=== PATIENT | male | born 1990 | race Two or more races ===

== ENCOUNTER → 2016-04-29 | Outpatient (CLI) | payer MEDICARE, MEDICAID | LOC: M LAB 16:48 | PROVIDERS: ATTEND Surgery | DX: N39.0 Urinary tract infection, site not specified (principal) ==

== ENCOUNTER → 2016-05-16 | Outpatient (REF) | payer MEDICARE, MEDICAID ==
[2016-05-16 15:39] LABS: BASO # 0.1 K/mm3 (0.0-0.2); EOS # 0.1 K/mm3 (0.0-0.50); LARGE UNSTAINED CELL # 0.2 K/mm3 (0.0-0.4); LARGE UNSTAINED CELL % 1.8 % (0.0-4.0); LYMPH # 3.3 K/mm3 (1.5-6.5); LYMPH % 33.4 % (24.0-44.0); MEAN CORPUSCULAR HGB CONC 32.6 g/dl (32.0-36.5); MEAN CORPUSCULAR VOLUME 85.7 fl (80.0-96.0); MONO # 0.6 K/mm3 (0.0-0.8); MONO % 5.9 % (0.0-5.0); NEUTROPHILS # 5.3 K/mm3 (1.8-7.7); NEUTROPHILS % 56.8 % (36.0-66.0); PLATELET COUNT, AUTOMATED 326 k/mm3 (150-450); RED CELL DISTRIBUTION WIDTH 12.8 % (11.5-14.5); WHITE BLOOD COUNT 9.3 K/mm3 (4.0-10.0)
[2016-05-16 16:35] LABS: ALBUMIN 4.3 GM/DL (3.2-5.2); ALBUMIN/GLOBULIN RATIO 1.23 (1.00-1.93); ALKALINE PHOSPHATASE 75 U/L (45-117); ALT/SGPT 52 U/L (12-78); ANION GAP 12 MEQ/L (8-16); AST/SGOT 24 U/L (15-37); BILIRUBIN,TOTAL 0.5 MG/DL (0.2-1.0); BLOOD UREA NITROGEN 11 MG/DL (7-18); CALCIUM LEVEL 9.1 MG/DL (8.5-10.1); CARBON DIOXIDE LEVEL 27 MEQ/L (21-32); CHLORIDE LEVEL 105 MEQ/L (98-107); CHOLESTEROL LEVEL 183 MG/DL (<200); CREATININE FOR GFR 0.43 MG/DL (0.70-1.30); GLOMERULAR FILTRATION RATE > 60.0 (>60); GLUCOSE, FASTING 85 MG/DL (70-105); SODIUM LEVEL 144 MEQ/L (136-145); TOTAL PROTEIN 7.8 GM/DL (6.4-8.2); TRIGLYCERIDES LEVEL 163 MG/DL (<150)
== END ==
LOC: M SFHCPLAZ 12:50
PROVIDERS: ATTEND Physician Assistant
DX: G04.89 Other myelitis (principal); I10 Essential (primary) hypertension; E78.5 Hyperlipidemia, unspecified; E55.9 Vitamin D deficiency, unspecified

== ENCOUNTER → 2016-05-21 | Outpatient (CLI) | payer MEDICARE, MEDICAID ==
--- NOTE | 2016-05-21 15:51 | REP ---
ULTRASOUND RIGHT HIP: Ultrasound right hip region performed for a reported palpable abnormality. There is a clinical question of myositis ossificans. There is generalized increased echogenicity of the soft tissues in the region of the palpable abnormality at the lateral aspect of the right hip. No discrete cystic or solid mass is seen. No fluid collection is seen. Further evaluation for myositis ossificans could be made with plain radiographs of this region.
== END ==
LOC: M WHC 14:10
PROVIDERS: ATTEND Physician Assistant
DX: R22.41 Localized swelling, mass and lump, right lower limb (principal)

== ENCOUNTER → 2016-06-04 | Outpatient (CLI) | payer MEDICARE, MEDICAID | LOC: M LAB 17:03 | PROVIDERS: ATTEND Surgery | DX: N39.0 Urinary tract infection, site not specified (principal) ==

== ENCOUNTER → 2016-11-22 | Outpatient (CLI) | payer MEDICARE, MEDICAID | LOC: M LAB 11:53 | PROVIDERS: ATTEND Surgery | DX: R30.0 Dysuria (principal) ==

== ENCOUNTER → 2017-03-19 | Outpatient (REF) | payer MEDICARE, MEDICAID | LOC: M SFHCPLAZ 15:26 | PROVIDERS: ATTEND Physician Assistant | DX: E55.9 Vitamin D deficiency, unspecified (principal) ==

== ENCOUNTER → 2017-03-25 | Outpatient (REF) | payer MEDICARE, MEDICAID | LOC: M SFHCPLAZ 14:15 | PROVIDERS: ATTEND Family Medicine | DX: Z68.35 Body mass index [BMI] 35.0-35.9, adult (principal); E66.9 Obesity, unspecified; Z79.899 Other long term (current) drug therapy ==

== ENCOUNTER 2017-06-30 11:52 | Day surgery (SDC) | payer MEDICARE, MEDICAID ==
[2017-06-30] MEDS: LR 1,000 ML IV (12:35)
[2017-06-30] MEDS ORDERED: MIDAZOLAM INJ 2 MG/2 ML VIAL (J2250) As Ordered (12:39)
[2017-06-30] MEDS ORDERED: PROPOFOL 200 MG/20 ML VIAL As Ordered ×2 (12:39→13:31)
[2017-06-30] MEDS ORDERED: fentaNYL 100 MCG/2 ML INJECTION (J3010) As Ordered (12:39)
[2017-06-30] MEDS ORDERED: LIDOCAINE 2% INJ 100 MG/5 ML SDV (FOR ANES.) As Ordered (12:39)
[2017-06-30] MEDS: LIDOCAINE 1% SDV INJ 30 ML VIAL As Ordered (13:54)
[2017-06-30] MEDS ORDERED: PERCOCET 5MG/325MG TAB As Ordered (14:40)
[2017-06-30] MEDS: PERCOCET 5MG/325MG TAB PO ×2 (14:48→15:20)
[2017-06-30] MEDS: ONDANSETRON 4MG/2ML VIAL (J2405) IV (14:51)
[2017-06-30] MEDS ORDERED: METOCLOPRAMIDE INJ 10MG/2ML VIAL (J2765) IV (15:00)
[2017-06-30] MEDS ORDERED: fentaNYL 100 MCG/2 ML INJECTION (J3010) IV (15:00)
[2017-06-30] MEDS ORDERED: LR 1,000 ML IV (15:00)
== END 2017-06-30 15:55 | disposition home or self-care (01) ==
LOC: M SDC 11:52
DX: G56.01 Carpal tunnel syndrome, right upper limb (principal); G82.20 Paraplegia, unspecified; Z99.3 Dependence on wheelchair; I10 Essential (primary) hypertension; Z79.899 Other long term (current) drug therapy; Z87.891 Personal history of nicotine dependence
CPT/HCPCS: 64721

== ENCOUNTER → 2018-01-29 | Outpatient (REF) | payer MEDICARE, MEDICAID | LOC: M LAB REF 19:12 | DX: N39.0 Urinary tract infection, site not specified (principal) ==

== ENCOUNTER → 2018-01-29 | Outpatient (CLI) | payer MEDICARE, MEDICAID ==
[2018-01-29 18:53] LABS: BASO # 0.1 10^3/uL (0.0-0.2); BASO % 0.5 % (0.0-1.0); HEMATOCRIT 42.3 % (42.0-52.0); IMMATURE GRANULOCYTE % 0.8 % (0-3.0); LYMPH # 2.4 10^3/uL (1.5-6.5); LYMPH % 11.3 % (24.0-44.0); MEAN CORPUSCULAR HEMOGLOBIN 28.6 pg (27.0-33.0); MEAN CORPUSCULAR HGB CONC 33.1 g/dl (32.0-36.5); MEAN CORPUSCULAR VOLUME 86.3 fl (80.0-96.0); MONO % 9.6 % (0.0-5.0); NEUTROPHILS # 16.7 10^3/uL (1.8-7.7); NEUTROPHILS % 77.8 % (36.0-66.0); PLATELET COUNT, AUTOMATED 268 10^3/uL (150-450); RED CELL DISTRIBUTION WIDTH 13.1 % (11.5-14.5); WHITE BLOOD COUNT 21.5 10^3/uL (4.0-10.0)
[2018-01-29 18:55] LABS: MONO # 2.1 10^3/uL (0.0-0.8); POSITIVE DIFF POS FLAG
[2018-01-29 19:04] LABS: ALBUMIN/GLOBULIN RATIO 1.14 (1.00-1.93); ALKALINE PHOSPHATASE 63 U/L (45-117); ALT/SGPT 49 U/L (12-78); ANION GAP 12 MEQ/L (8-16); AST/SGOT 33 U/L (7-37); BILIRUBIN,TOTAL 1.4 MG/DL (0.2-1.0); BLOOD UREA NITROGEN 8 MG/DL (7-18); CARBON DIOXIDE LEVEL 26 MEQ/L (21-32); CHLORIDE LEVEL 99 MEQ/L (98-107); CREATININE FOR GFR 0.59 MG/DL (0.70-1.30); GLOMERULAR FILTRATION RATE > 60.0 (>60); GLUCOSE, FASTING 84 MG/DL (70-100); POTASSIUM SERUM 3.3 MEQ/L (3.5-5.1); SODIUM LEVEL 137 MEQ/L (136-145); TOTAL PROTEIN 7.5 GM/DL (6.4-8.2)
== END ==
LOC: M WUC 16:09
DX: N39.0 Urinary tract infection, site not specified (principal)
CPT/HCPCS: 80053

== ENCOUNTER 2018-01-30 13:26 | Emergency (ER) | payer MEDICARE, MEDICAID ==
[2018-01-30] MEDS: NS 1,000 ML IV (15:18)
[2018-01-30 15:27] LABS: BASO # 0.1 10^3/uL (0.0-0.2); BASO % 0.3 % (0.0-1.0); EOS % 0.1 % (0.0-3.0); HEMATOCRIT 43.5 % (42.0-52.0); HEMOGLOBIN 14.6 g/dl (13.5-17.5); IMMATURE GRANULOCYTE % 0.5 % (0-3.0); LYMPH # 2.2 10^3/uL (1.5-6.5); MEAN CORPUSCULAR HEMOGLOBIN 28.6 pg (27.0-33.0); MEAN CORPUSCULAR HGB CONC 33.6 g/dl (32.0-36.5); MEAN CORPUSCULAR VOLUME 85.1 fl (80.0-96.0); MONO % 11.4 % (0.0-5.0); NEUTROPHILS % 75.7 % (36.0-66.0); PLATELET COUNT, AUTOMATED 267 10^3/uL (150-450); RED BLOOD COUNT 5.11 10^6/uL (4.30-6.10); WHITE BLOOD COUNT 18.5 10^3/uL (4.0-10.0)
[2018-01-30 15:54] LABS: APPEARANCE, URINE HAZY (CLEAR); BACTERIA, URINE AUTO 1+ (NEGATIVE); BILIRUBIN, URINE AUTO NEGATIVE (NEGATIVE); BLOOD, URINE BLOOD 2+ (NEGATIVE); COLOR, URINE YELLOW (YELLOW); GLUCOSE, URINE (UA) AUTO NEGATIVE (NEGATIVE); KETONE, URINE AUTO 1+ mg/dL (NEGATIVE); LEUKOCYTE ESTERASE, URINE AUTO TRACE (NEGATIVE); MUCUS, URINE MODERATE (NEGATIVE); NITRITE, URINE AUTO NEGATIVE (NEGATIVE); PROTEIN, URINE AUTO 2+ mg/dL (NEGATIVE); RBC, URINE AUTO 8 /HPF (0-3); SPECIFIC GRAVITY URINE AUTO 1.024 (1.002-1.035); SQUAMOUS EPITHELIAL CELL UR AU 0 /HPF (0-6); UROBILINOGEN, URINE AUTO 0.2 mg/dL (0.0-2.0); WBC, URINE AUTO 2 /HPF (0-3)
[2018-01-30 15:55] LABS: LACTIC ACID SEPSIS PROTOCOL 1.2 MMOL/L (0.4-2.0)
[2018-01-30 15:58] LABS: MONO # 2.1 10^3/uL (0.0-0.8)
[2018-01-30 15:59] LABS: POSITIVE DIFF POS FLAG
[2018-01-30] MEDS: cefTRIAXone SOD 1 GM in D5W MINI-BAG PLUS 50 ML IV (16:09)
[2018-01-30 16:17] LABS: ALBUMIN 4.3 GM/DL (3.2-5.2); ALKALINE PHOSPHATASE 65 U/L (45-117); ALT/SGPT 62 U/L (12-78); ANION GAP 11 MEQ/L (8-16); AST/SGOT 82 U/L (7-37); BILIRUBIN,DIRECT 0.3 MG/DL (0.0-0.2); BILIRUBIN,TOTAL 0.9 MG/DL (0.2-1.0); BLOOD UREA NITROGEN 8 MG/DL (7-18); CALCIUM LEVEL 9.8 MG/DL (8.5-10.1); CARBON DIOXIDE LEVEL 28 MEQ/L (21-32); CHLORIDE LEVEL 100 MEQ/L (98-107); CREATININE FOR GFR 0.52 MG/DL (0.70-1.30); GLOMERULAR FILTRATION RATE > 60.0 (>60); GLUCOSE, FASTING 100 MG/DL (70-100); POTASSIUM SERUM 3.3 MEQ/L (3.5-5.1); SODIUM LEVEL 139 MEQ/L (136-145); TOTAL PROTEIN 8.2 GM/DL (6.4-8.2)
== END 2018-01-30 17:06 | disposition home or self-care (01) ==
LOC: M ED 13:26
DX: L03.116 Cellulitis of left lower limb (principal); N39.0 Urinary tract infection, site not specified; I10 Essential (primary) hypertension; G82.20 Paraplegia, unspecified; G37.3 Acute transverse myelitis in demyelinating disease of central nervous system; Z87.440 Personal history of urinary (tract) infections; Z79.899 Other long term (current) drug therapy
CPT/HCPCS: J0696

== ENCOUNTER → 2018-03-24 | Outpatient (REF) | payer MEDICARE, MEDICAID ==
[~2018-03-24] MED LIST: AMLO5TAB4 PO; CRAN250C2 PO; KEFL500C17 PO; LISI10TA4 PO; VITA100067 PO; VITA100072 PO; VITA500T PO; ZOFR4TAB14 PO; [UNRECOGNIZED DRUG - CODE] PO
== END ==
LOC: M LAB REF 09:36
PROVIDERS: ATTEND Physician Assistant
DX: R30.0 Dysuria (principal)

== ENCOUNTER → 2018-08-03 | Outpatient (REF) | payer MEDICARE, MEDICAID, OTHER ==
[~2018-08-03] MED LIST changes: -AMLO5TAB4 PO; +AMLO5TAB6 PO; +VITA100018 PO; -VITA100072 PO
[2018-08-03 20:18] LABS: BACTERIA, URINE AUTO NEGATIVE (NEGATIVE); MUCUS, URINE SMALL (NEGATIVE); RBC, URINE AUTO 0 /HPF (0-3); SQUAMOUS EPITHELIAL CELL UR AU 0 /HPF (0-6); WBC, URINE AUTO 1 /HPF (0-3)
== END ==
LOC: M LAB REF 18:01
PROVIDERS: ATTEND Physical Medicine & Rehabilitation
DX: N39.0 Urinary tract infection, site not specified (principal)

== ENCOUNTER → 2018-10-18 | Outpatient (REF) | payer OTHER, MEDICARE ==
[~2018-10-18] MED LIST changes: +CIPR-249 PO; +CLOM50TA9 PO; +CRAN400C PO; +DOXY-350 PO; +DULO1CAP4 PO; +IBUP-1114 PO; +LETR2.5T2 PO; +TYLE650T38 PO; +[UNRECOGNIZED DRUG - CODE] PO
== END ==
LOC: M LAB REF 09:26
PROVIDERS: ATTEND Physician Assistant
DX: N39.0 Urinary tract infection, site not specified (principal)

== ENCOUNTER → 2018-11-26 | Outpatient (REF) | payer OTHER ==
[~2018-11-26] MED LIST changes: -CIPR-249 PO; -CLOM50TA9 PO; -CRAN400C PO; -DOXY-350 PO; -DULO1CAP4 PO; -IBUP-1114 PO; -LETR2.5T2 PO; -TYLE650T38 PO; -[UNRECOGNIZED DRUG - CODE] PO
== END ==
LOC: M LAB REF 14:49
PROVIDERS: ATTEND Physician Assistant
DX: R30.0 Dysuria (principal)

== ENCOUNTER → 2018-12-22 | Outpatient (CLI) | payer OTHER, MEDICARE, MEDICAID ==
[~2018-12-22] MED LIST changes: +CIPR-249 PO; +CLOM50TA9 PO; +CRAN400C PO; +DOXY-350 PO; +DULO1CAP4 PO; +IBUP-1114 PO; +LETR2.5T2 PO; +TYLE650T38 PO; +[UNRECOGNIZED DRUG - CODE] PO
[2018-12-22 17:47] LABS: PROSTATIC SPECIFIC AG MONITOR 0.55 NG/ML (< 4.00)
[2018-12-22 18:47] LABS: ESTRADIOL < 19.0 PG/ML (<39.8); TESTOSTERONE 536 NG/DL (241-827)
== END ==
LOC: M WUC 15:33
PROVIDERS: ATTEND Urology
DX: N46.9 Male infertility, unspecified (principal)

== ENCOUNTER 2019-01-04 16:03 | Inpatient (IN) | payer OTHER, MEDICARE, MEDICAID ==
[~2019-01-04] VITALS: Ht 182.9 cm; Wt 107.1 kg
[~2019-01-04 16:03] MED LIST changes: -CIPR-249 PO; -CLOM50TA9 PO; -CRAN400C PO; -DOXY-350 PO; -DULO1CAP4 PO; -IBUP-1114 PO; -LETR2.5T2 PO; -TYLE650T38 PO; -[UNRECOGNIZED DRUG - CODE] PO
[2019-01-04] MEDS ORDERED: LETR2.5T2 PO (16:13)
[2019-01-04] MEDS ORDERED: DULO1CAP4 PO (16:13)
[2019-01-04] MEDS ORDERED: CIPR-249 PO (16:13)
[2019-01-04] MEDS ORDERED: IBUP-1114 PO (16:14)
[2019-01-04] MEDS ORDERED: ONDANSETRON 4MG/2ML VIAL (J2405) IV ONE (16:30)
[2019-01-04] MEDS ORDERED: ACETAMINOPHEN *IV* 1,000 MG in IV 1 EA IV ONE (16:30)
[2019-01-04] MEDS ORDERED: NS 1,000 ML IV ONE ×2 (16:30)
--- NOTE | 2019-01-04 17:01 | REP ---
Portable AP and lateral chest : There are no comparisons. There is an incomplete inspiratory effort. There is increased density in the lung bases bilaterally. This is nonspecific and could represent under aeration of the lung cannon or could represent bilateral infiltrates. No pleural effusions. Cardiac size is normal. Electronically Signed by Juan Carlos Lopez MD 01/04/2019 04:52 P
[2019-01-04 17:02] LABS: BASO % 0.3 % (0.0-1.0); HEMATOCRIT 38.8 % (42.0-52.0); LYMPH # 1.1 10^3/uL (1.5-5.0); LYMPH % 7.4 % (24.0-44.0); MEAN CORPUSCULAR HEMOGLOBIN 28.1 pg (27.0-33.0); MEAN CORPUSCULAR HGB CONC 33.5 g/dl (32.0-36.5); MONO # 0.4 10^3/uL (0.0-0.8); MONO % 2.8 % (0.0-5.0); NEUTROPHILS # 12.8 10^3/uL (1.5-8.5); NEUTROPHILS % 88.9 % (36.0-66.0); PLATELET COUNT, AUTOMATED 398 10^3/uL (150-450); RED BLOOD COUNT 4.62 10^6/uL (4.30-6.10); WHITE BLOOD COUNT 14.4 10^3/uL (4.0-10.0)
[2019-01-04 17:30] LABS: ALBUMIN 3.5 GM/DL (3.2-5.2); ALT/SGPT 53 U/L (12-78); BILIRUBIN,TOTAL 1.1 MG/DL (0.2-1.0); BLOOD UREA NITROGEN 8 MG/DL (7-18); CALCIUM LEVEL 9.3 MG/DL (8.5-10.1); CARBON DIOXIDE LEVEL 27 MEQ/L (21-32); CHLORIDE LEVEL 101 MEQ/L (98-107); CREATININE FOR GFR 0.61 MG/DL (0.70-1.30); GLOMERULAR FILTRATION RATE > 60.0 (>60); GLUCOSE, FASTING 112 MG/DL (70-100); SODIUM LEVEL 137 MEQ/L (136-145); TOTAL PROTEIN 7.5 GM/DL (6.4-8.2)
--- NOTE | 2019-01-04 18:07 | REP ---
Supine abdomen single AP view: Comparison is 07/19/2013. There is moderate small and large bowel distension in a nonspecific pattern. There are no calcifications. Skeletal structures and soft tissues are unremarkable. Impression: Nonspecific bowel gas pattern. Electronically Signed by Juan Carlos Lopez MD 01/04/2019 05:58 P
[2019-01-04 18:10] LABS: INFLUENZA A AMPLIFICATION NEGATIVE (NEGATIVE); INFLUENZA B AMPLIFICATION NEGATIVE (NEGATIVE)
[2019-01-04] MEDS ORDERED: KETOROLAC 30 MG/ML VIAL (J1885) IV ONE (18:30)
[2019-01-04] MEDS: NS 1,000 ML IV SCH (19:30)
[2019-01-04] MEDS ORDERED: CLOM50TA9 PO (19:48)
[2019-01-04] MEDS ORDERED: [UNRECOGNIZED DRUG - CODE] PO (19:48)
[2019-01-04] MEDS ORDERED: CRAN400C PO (19:48)
[2019-01-04] MEDS ORDERED: PIPERACILLIN/TAZOBACTAM SOD 3.375 GM in D5W MINI-BAG PLUS 50 ML IV ONE (20:15)
--- NOTE | 2019-01-04 20:16 | HPEPDOC ---
[facility] Medical History & Physical Date of Admission Jan 04, 2019 Date of Service: Jan 04, 2019 Primary Care Physician: KATY CRAMER MD Attending Physician: SHAHAB GARCIA MD History and Physical TIME OF SERVICE: 7:45 PM CHIEF COMPLAINT: Fever HISTORY OF PRESENT ILLNESS: This is a 28-year-old male with a past medical history of paraplegia and urinary retention requiring intermittent self catheterization. Unfortunately, his experience replete UTIs. Since Thursday he's been experiencing fevers, nausea, nonbloody emesis, abdominal pain, decreased appetite and mild headaches. He denies having chills, denies having new back pain, and denies having constipation or diarrhea. On Thursday, went to urgent care center and was started on ciprofloxacin but he came in today because he continues to have fevers, chills, and vomiting. Per discussion with the ED provider his initial temperature was 103.1 and improved to 101.3 after receiving Tylenol. His WBC count & HR were elevated, and the UA was only positive for WBCs & RBCs. The respiratory panel, chest x-ray, and KUB were unremarkable. 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 Tunnel syndrome affecting the right wrist His post placement of an artificial urethral sphincter SOCIAL HISTORY: Quit smoking FAMILY HISTORY: Diabetes Hypertension Dyslipidemia. Hypothyroidism. AAA Congestive heart failure Coronary artery disease ALLERGIES: Please see below. HOME MEDICATIONS: Please see below. PHYSICAL EXAMINATION: VITAL SIGNS: Please see below. GENERAL APPEARANCE: Well-nourished, well-developed, does not appear in apparent distress HEENT: No cephalic, atraumatic, mucous membranes slightly dry CARDIOVASCULAR: Regular rate and rhythm. No murmurs, rubs or gallops. Radial pulses intact. External these are warm and well-perfused LUNGS: Clear to auscultation bilaterally on room air ABDOMEN: Bowel sounds are hypoactive. Abdomen is soft. No grimacing with palpation MUSCULOSKELETAL: Range of motion intact in upper extremities INTEGUMENT: Slightly diaphoretic NEUROLOGICAL: Cranial nerves II-12 are grossly intact. Speech is not dysarthric PSYCHIATRIC: Alert and oriented to person, place and time, able to understand and follow commands LABORATORY DATA: See below. IMAGING: Chest x-ray " There is increased density in the lung bases bilaterally. This is nonspecific and could represent under aeration of the lung cannon or could represent bilateral infiltrates." KUB shows nonspecific gas pattern MICROBIOLOGY: Please see below. ASSESSMENT: Mr. Saenz is a 28-year-old male with a past medical history of transverse myelitis, chronic hypertension, carpal tunnel syndrome, who will be admitted for evaluation of SIRS whose sources is to be determined. PLAN: 1. SIRS Source may be a partially treated UTI ? vs Bacteremia ? He doesn't have a severe headache or neck stiffness; therefore meningitis is low on the differential. His only complaints are of n/v and abd pain Criteria include fever, tachycardia, tachypnea, and elevated WBC count Lactic acid is within normal limits He has non diabetic hyperglycemia Chest x-ray, KUB, UA, and flu panel are noncontributory NEW2S Score = 6 points = medium risk = requires frequent monitoring Plan: admit to PCU / telemetry / Sepsis protocol / switch to Zosyn / c/w IVF /f/u blood cx 2. Hypokalemia secondary to emesis Plan: Replete potassium and follow-up magnesium / Zofran when necessary for emesis 3. 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 Chronic hypertension. Plan: Continue home meds 5. Obesity BMI 34.7 Plan: can f/u w PCP for STOP BANG questionnaire railroad conductor consult / f/u A1C [place] Prediction Score to determine need for AC in hospitalized pts = 4 points = pharmacological px is indicated = lovenox Disposition pending clinical course Vital Signs Vital Signs Date Time Temp Pulse Resp B/P (MAP) Pulse Ox O2 Delivery O2 Flow Rate FiO2 01/04/19 18:30 101.6 99 22 143/65 (91) 92 Room Air Laboratory Data Labs 24H Laboratory Tests 2 01/04/19 16:33: Immature Granulocyte % (Auto) 0.6, White Blood Count 14.4H, Red Blood Count 4.62, Hemoglobin 13.0L, Hematocrit 38.8L, Mean Corpuscular Volume 84.0, Mean Corpuscular Hemoglobin 28.1, Mean Corpuscular Hemoglobin Concent 33.5, Red Cell Distribution Width 13.0, Platelet Count 398, Neutrophils (%) (Auto) 88.9H, Lymphocytes (%) (Auto) 7.4L, Monocytes (%) (Auto) 2.8, Eosinophils (%) (Auto) 0.0, Basophils (%) (Auto) 0.3, Neutrophils # (Auto) 12.8H, Lymphocytes # (Auto) 1.1L, Monocytes # (Auto) 0.4, Eosinophils # (Auto) 0.0, Basophils # (Auto) 0.0, Nucleated Red Blood Cells % (auto) 0.0, Anion Gap 9, Glomerular Filtration Rate > 60.0, Lactic Acid Level 1.4, Blood Urea Nitrogen 8, Creatinine 0.61L, Sodium Level 137, Potassium Level 3.0L, Chloride Level 101, Carbon Dioxide Level 27, Calcium Level 9.3, Aspartate Amino Transf (AST/SGOT) 29, Alanine Aminotransferase (ALT/SGPT) 53, Alkaline Phosphatase 69, Total Bilirubin 1.1H, Total Protein 7.5, Albumin 3.5, Albumin/Globulin Ratio 0.88L, Influenza Type A (RT-PCR) NEGATIVE, Influenza Type B (RT-PCR) NEGATIVE 01/04/19 18:18: Urine Color POLI, Urine Appearance HAZY, Urine pH 6.0, Urine Specific [place] 1.027, Urine Protein 2+H, Urine Glucose (UA) NEGATIVE, Urine Ketones 2+H, Urine Blood NEGATIVE, Urine Nitrite NEGATIVE, Urine Bilirubin NEGATIVE, Urine Urobilinogen 4.0H, Urine Leukocyte Esterase NEGATIVE, Urine WBC (Auto) 6H, Urine RBC (Auto) 4H, Urine Hyaline Casts (Auto) 0, Urine Bacteria (Auto) NEGATIVE, Urine Squamous Epithelial Cells 0, Urine Mucus (Auto) LARGE, Urine Sperm (Auto) CBC/BMP Laboratory Tests 01/04/19 16:33 Red Blood Count 4.62, Mean Corpuscular Volume 84.0, Mean Corpuscular Hemoglobin 28.1, Mean Corpuscular Hemoglobin Concent 33.5, Red Cell Distribution Width 13.0, Neutrophils (%) (Auto) 88.9 H, Lymphocytes (%) (Auto) 7.4 L, Monocytes (%) (Auto) 2.8, Eosinophils (%) (Auto) 0.0, Basophils (%) (Auto) 0.3, Neutrophils # (Auto) 12.8 H, Lymphocytes # (Auto) 1.1 L, Monocytes # (Auto) 0.4, Eosinophils # (Auto) 0.0, Basophils # (Auto) 0.0, Calcium Level 9.3, Aspartate Amino Transf (AST/SGOT) 29, Alanine Aminotransferase (ALT/SGPT) 53, Alkaline Phosphatase 69, Total Bilirubin 1.1 H, Total Protein 7.5, Albumin 3.5 Microbiology Microbiology 01/04/19 Blood Culture, Received Pending 01/04/19 Blood Culture, Received Pending Home Medications Scheduled Amlodipine Besylate (Amlodipine Besylate) 5 Mg Tab, 5 MG PO DAILY Ascorbic Acid (Vitamin C) 500 Mg Tab, 500 MG PO BID TAKES WITH METHENAMINE C/E/FA/Zinc/Selenium/Lycopene (Conceptionxr Reproductive Tab) 1 Each Tablet, 1 TAB PO BID Ciprofloxacin HCl (Cipro) 500 Mg Tablet, 500 MG PO BID FOR 4 DAYS, FILLED 01/02 Clomiphene Citrate (Clomiphene Citrate) 50 Mg Tablet, 50 MG PO DAILY Cranberry (Cranberry) 400 Mg Capsule, 400 MG PO DAILY Cyanocobalamin (Vitamin B-12) (Vitamin B-12) 1,000 Mcg Tab, 1,000 MCG PO DAILY Duloxetine Hcl (Duloxetine HCl) 20 Mg Capsule.dr, 20 MG PO BID Letrozole (Letrozole) 2.5 Mg Tablet, 2.5 MG PO DAILY Lisinopril (Lisinopril) 10 Mg Tab, 10 MG PO DAILY Methenamine Hippurate (Hiprex) 1 Gm Tab, 1 GM PO BID TAKES WITH VIT C Scheduled PRN Ibuprofen (Ibuprofen) 400 Mg Tablet, 400 MG PO Q6H PRN for PAIN / FEVER Allergies Coded Allergies: No Known Allergies (Unverified , 06/30/17) A-FIB/CHADSVASC A-FIB History Current/History of A-Fib/PAF?: No Current PO Anticoag Therapy: No SHAHAB GARCIA MD Jan 04, 2019 20:16
[2019-01-04 20:55] VITALS: BP 136/78
[2019-01-04] MEDS ORDERED: KCL 10MEQ/100ML SWI (KRUN) 10 MEQ in IV 1 EA IV ONE (21:00)
[2019-01-04] MEDS: POTASSIUM CHL PWD 20 MEQ PACKET PO SCH (21:45)
[2019-01-04] MEDS: SIMETHICONE 80 MG CHEW TAB PO PRN (22:37)
[2019-01-04] MEDS: PIPERACILLIN/TAZOBACTAM SOD 3.375 GM in D5W MINI-BAG PLUS 50 ML IV SCH (22:58)
[2019-01-04 23:59] VITALS: BP 105/55
[2019-01-05] VITALS (7 sets, daily range): BP systolic 125–180; BP diastolic 57–82
[2019-01-05] MEDS: POTASSIUM CHL PWD 20 MEQ PACKET PO SCH ×2 (00:55→05:51)
[2019-01-05] MEDS: NS 1,000 ML IV SCH ×2 (04:15→20:35)
[2019-01-05] MEDS: PIPERACILLIN/TAZOBACTAM SOD 3.375 GM in D5W MINI-BAG PLUS 50 ML IV SCH ×4 (04:16→21:59)
[2019-01-05 05:21] LABS: HEMATOCRIT 34.5 % (42.0-52.0); HEMOGLOBIN 11.3 g/dl (13.5-17.5); MEAN CORPUSCULAR HEMOGLOBIN 28.3 pg (27.0-33.0); MEAN CORPUSCULAR HGB CONC 32.8 g/dl (32.0-36.5); MEAN CORPUSCULAR VOLUME 86.5 fl (80.0-96.0); PLATELET COUNT, AUTOMATED 313 10^3/uL (150-450); RED BLOOD COUNT 3.99 10^6/uL (4.30-6.10); WHITE BLOOD COUNT 11.3 10^3/uL (4.0-10.0)
[2019-01-05 05:42] LABS: BLOOD UREA NITROGEN 9 MG/DL (7-18); CALCIUM LEVEL 8.2 MG/DL (8.5-10.1); CARBON DIOXIDE LEVEL 31 MEQ/L (21-32); CHLORIDE LEVEL 105 MEQ/L (98-107); CREATININE FOR GFR 0.54 MG/DL (0.70-1.30); GLOMERULAR FILTRATION RATE > 60.0 (>60); GLUCOSE, FASTING 109 MG/DL (70-100); POTASSIUM SERUM 3.1 MEQ/L (3.5-5.1); SODIUM LEVEL 141 MEQ/L (136-145)
[2019-01-05 05:47] LABS: HEMOGLOBIN A1c 4.9 %
[2019-01-05] MEDS: SIMETHICONE 80 MG CHEW TAB PO PRN (05:55)
[2019-01-05] MEDS ORDERED: PIPERACILLIN/TAZOBACTAM SOD 2.25 GM in D5W MINI-BAG PLUS 50 ML IV SCH (09:00)
[2019-01-05] MEDS ORDERED: POTASSIUM CHLORIDE 10 MEQ SR TABLET PO ONE (09:00)
[2019-01-05] MEDS: ENOXAPARIN 40 MG/0.4 ML SYRINGE (J1650) SC SCH (09:27)
[2019-01-05] MEDS: IBUPROFEN 600 MG TAB PO PRN ×2 (11:58)
[2019-01-05] MEDS: amLODIPine 5 MG TAB PO SCH (13:05)
[2019-01-05] MEDS: LISINOPRIL 10 MG TAB PO SCH (13:06)
[2019-01-05] MEDS: CYANOCOBALAMIN 500 MCG TAB PO SCH (13:09)
--- NOTE | 2019-01-05 14:43 | IPNPDOC ---
Text Note Date of Service The patient was seen on 01/05/19. NOTE Subjective: Patient is a 28 year old male with a PMHx of HTN, Paraplegia 2/2 Transverse Myelitis, Neurogenic bladder (Requiring self-catheterizations, s/p Placement of artificial urethral sphincter) who has presented to the ER with complaints of N/V, fevers and abdominal pain. On 01/01 he had visited Urgent care and was presecribed Ciprofloxacin for a suspected UTI. Patient was admitted to the hospitalist service for further evaluation / treatment. Patient was seen and examined at the bedside. Currently patient has no complaints of N/V, abdominal pain, CP, SOB or palitations. Patient has a history of paraplegia and is unfortunately unable to determine if he there is any dysuria. He has noted that his urine has been much darker than usual. At baseline patient uses a device to help with bowel movements. Currently he denies any incontinence of stools. Objective: Vitals (See below) General: Lying in bed, no acute distress, comfortable, AAOx3 HEENT: NC, AT CVS: RRR, +S1S2 Lungs: Fair air entry b/l, -w/r/r Abdomen: Soft, ND, NT Extremities: - Edema, - Calf tenderness Assessment and plan: Fever / Chills - etiology unclear; possibly 2/2 pneumonia? (Coverage for gram negative pneumonia) - Patient has had a history of recurrent UTIs; has visited urgent care and was prescribed Ciprofloxacin; despite this continued to experience fevers - ROS remains negative at this time - Currently he is hemodynamically stable; mild fevers still noted - Leukocytosis improving; No lactic acidosis - Urinalysis does not appear to have evidence of infection - Blood cultures 01/04: Pending; Respiratory panel 10/: Negative - CXR 01/04: There are no comparisons. There is an incomplete inspiratory effort. There is increased density in the lung bases bilaterally. This is nonspecific and could represent under aeration of the lung cannon or could represent bilateral infiltrates. No pleural effusions. Cardiac size is normal. - XR Abdomen 01/04: Nonspecific bowel gas pattern. - c/w Zosyn (Day #2) and IV fluid hydration Hypokalemia - possibly 2/2 emesis - will again supplement Paraplegia 2/2 Transverse Myelitis - c/w Frequent position changes Neurogenic bladder - s/p Placement of artificial urethral sphincter - Patient continues with self-catheterizations HTN - BP moderately controlled - Will resume Lisinopril and Amlodipine Mood disorder - c/w Duloxetine Obesity - BMI 34.7 - Complicating medical care DVT prophylaxis - c/w Lovenox VS,Fishbone, I+O VS, Fishbone, I+O Laboratory Tests 01/04/19 16:33 Red Blood Count 4.62, Mean Corpuscular Volume 84.0, Mean Corpuscular Hemoglobin 28.1, Mean Corpuscular Hemoglobin Concent 33.5, Red Cell Distribution Width 13.0, Neutrophils (%) (Auto) 88.9 H, Lymphocytes (%) (Auto) 7.4 L, Monocytes (%) (Auto) 2.8, Eosinophils (%) (Auto) 0.0, Basophils (%) (Auto) 0.3, Neutrophils # (Auto) 12.8 H, Lymphocytes # (Auto) 1.1 L, Monocytes # (Auto) 0.4, Eosinophils # (Auto) 0.0, Basophils # (Auto) 0.0, Calcium Level 9.3, Aspartate Amino Transf (AST/SGOT) 29, Alanine Aminotransferase (ALT/SGPT) 53, Alkaline Phosphatase 69, Total Bilirubin 1.1 H, Total Protein 7.5, Albumin 3.5 01/05/19 04:54 Red Blood Count 3.99 L, Mean Corpuscular Volume 86.5, Mean Corpuscular Hemoglobin 28.3, Mean Corpuscular Hemoglobin Concent 32.8, Red Cell Distribution Width 13.2, Calcium Level 8.2 L Vital Signs Date Time Temp Pulse Resp B/P (MAP) Pulse Ox O2 Delivery O2 Flow Rate FiO2 01/05/19 13:05 105 180/82 01/05/19 12:30 100.9 01/05/19 12:00 18 94 01/04/19 20:47 Room Air I&O- Last 24 Hours up to 6 AM 01/05/19 06:00 Intake Total 1760 ml Output Total 550 ml Balance 1210 ml JUDITH ASHLEY MD Jan 05, 2019 14:43
[2019-01-05] MEDS: ACETAMINOPHEN 650MG ER TAB (TYLENOL ARTHRITIS) PO PRN (19:22)
[2019-01-05] MEDS: DULoxetine 20 MG CAP (CYMBALTA) PO SCH (21:58)
[2019-01-05] MEDS: ASCORBIC ACID 500 MG TAB PO SCH (21:58)
[2019-01-06] MEDS: ONDANSETRON 4MG/2ML VIAL (J2405) IV PRN ×2 (02:32→14:36)
[2019-01-06] MEDS: IBUPROFEN 600 MG TAB PO PRN ×2 (02:32→15:38)
[2019-01-06] MEDS: PIPERACILLIN/TAZOBACTAM SOD 3.375 GM in D5W MINI-BAG PLUS 50 ML IV SCH (03:18)
[2019-01-06] MEDS: SIMETHICONE 80 MG CHEW TAB PO PRN (03:18)
[2019-01-06 04:00] VITALS: BP 140/70
[2019-01-06] MEDS: NS 1,000 ML IV SCH ×4 (04:50→23:11)
[2019-01-06 07:34] LABS: BASO % 0.2 % (0.0-1.0); EOS % 0.1 % (0.0-3.0); HEMATOCRIT 32.1 % (42.0-52.0); HEMOGLOBIN 10.6 g/dl (13.5-17.5); LYMPH # 1.3 10^3/uL (1.5-5.0); LYMPH % 11.3 % (24.0-44.0); MEAN CORPUSCULAR HEMOGLOBIN 28.6 pg (27.0-33.0); MEAN CORPUSCULAR VOLUME 86.8 fl (80.0-96.0); MONO # 0.3 10^3/uL (0.0-0.8); MONO % 2.7 % (0.0-5.0); NEUTROPHILS # 9.5 10^3/uL (1.5-8.5); NEUTROPHILS % 85.2 % (36.0-66.0); PLATELET COUNT, AUTOMATED 328 10^3/uL (150-450); WHITE BLOOD COUNT 11.1 10^3/uL (4.0-10.0)
[2019-01-06 07:58] LABS: ALBUMIN 2.5 GM/DL (3.2-5.2); ALT/SGPT 67 U/L (12-78); BILIRUBIN,TOTAL 0.8 MG/DL (0.2-1.0); BLOOD UREA NITROGEN 8 MG/DL (7-18); CALCIUM LEVEL 8.2 MG/DL (8.5-10.1); CARBON DIOXIDE LEVEL 28 MEQ/L (21-32); CHLORIDE LEVEL 107 MEQ/L (98-107); CREATININE FOR GFR 0.47 MG/DL (0.70-1.30); GLOMERULAR FILTRATION RATE > 60.0 (>60); GLUCOSE, FASTING 102 MG/DL (70-100); MAGNESIUM LEVEL 1.8 MG/DL (1.8-2.4); POTASSIUM SERUM 3.5 MEQ/L (3.5-5.1); SODIUM LEVEL 142 MEQ/L (136-145); TOTAL PROTEIN 5.7 GM/DL (6.4-8.2)
[2019-01-06 08:00] VITALS: BP 148/78
[2019-01-06 08:29] LABS: AMYLASE 12 U/L (25-115); LIPASE 45 U/L (73-393)
[2019-01-06] MEDS: DULoxetine 20 MG CAP (CYMBALTA) PO SCH ×2 (09:32→20:20)
[2019-01-06] MEDS: ASCORBIC ACID 500 MG TAB PO SCH ×2 (09:32→20:20)
[2019-01-06] MEDS: CYANOCOBALAMIN 500 MCG TAB PO SCH (09:32)
[2019-01-06] MEDS: LISINOPRIL 10 MG TAB PO SCH (09:32)
[2019-01-06] MEDS: amLODIPine 5 MG TAB PO SCH (09:33)
[2019-01-06] MEDS: ENOXAPARIN 40 MG/0.4 ML SYRINGE (J1650) SC SCH (09:33)
[2019-01-06] MEDS: GASTROGRAFIN SOLUTION 30ML PO SCH ×2 (09:34→10:04)
--- NOTE | 2019-01-06 10:16 | IPNPDOC ---
Text Note Date of Service The patient was seen on 01/06/19. NOTE Subjective: Patient is a 28 year old male with a PMHx of HTN, Paraplegia 2/2 Transverse Myelitis, Neurogenic bladder (Requiring self-catheterizations, s/p Placement of artificial urethral sphincter) who has presented to the ER with complaints of N/V, fevers and abdominal pain. On 01/01 he had visited Urgent care and was prescribed Ciprofloxacin for a suspected UTI. Patient was admitted to the hospitalist service for further evaluation / treatment. Patient was seen and examined at the bedside. Patient reports that overnight he began to have fevers and chills. He denies any chest pain, shortness of breath or cough. Denies any significant abdominal pain or diarrhea. He has been experiencing nausea and vomiting. Objective: Vitals (See below) General: Lying in bed, no acute distress, comfortable, AAOx3 HEENT: NC, AT CVS: +S1S2 Lungs: There appears to be fair air entry bilaterally without evidence of rhonchi, rales or wheezing Abdomen: Abdomen again is soft, obese without any distention or tenderness Extremities: Lower extremities are free of any edema, - Calf tenderness Assessment and plan: Fever / Chills - etiology unclear; possibly 2/2 pneumonia? (Coverage for gram negative pneumonia), possibly 2/2 viral illness - Patient has had a history of recurrent UTIs; has visited urgent care and was prescribed Ciprofloxacin; despite this continued to experience fevers - ROS remains negative at this time - Currently he is hemodynamically stable; fevers were noted yesterday night - Leukocytosis improving; No lactic acidosis - Urinalysis does not appear to have evidence of infection - Blood cultures 01/04: Pending; Respiratory panel 10/: Negative - Procalcitonin noted to be at 0.12; anti-laxative been discontinued - CXR 01/04: There are no comparisons. There is an incomplete inspiratory effort. There is increased density in the lung bases bilaterally. This is nonspecific and could represent under aeration of the lung cannon or could represent bilateral infiltrates. No pleural effusions. Cardiac size is normal. - XR Abdomen 01/04: Nonspecific bowel gas pattern. - Will get CT chest / abdomen / pelvis; re: paralysis - Will DC Zosyn (Day #2); c/w IV fluid hydration - Will consult infectious disease s/p Hypokalemia - possibly 2/2 emesis Paraplegia 2/2 Transverse Myelitis - c/w Frequent position changes Neurogenic bladder - s/p Placement of artificial urethral sphincter - Patient continues with self-catheterizations HTN - BP moderately controlled - c/w Lisinopril and Amlodipine Mood disorder - c/w Duloxetine Obesity - BMI 34.7 - Complicating medical care DVT prophylaxis - c/w Lovenox VS,Fishbone, I+O VS, Fishbone, I+O Laboratory Tests 01/06/19 07:13 Red Blood Count 3.70 L, Mean Corpuscular Volume 86.8, Mean Corpuscular Hemo globin 28.6, Mean Corpuscular Hemoglobin Concent 33.0, Red Cell Distribution Width 13.6, Calcium Level 8.2 L, Aspartate Amino Transf (AST/SGOT) 41 H, Alanine Aminotransferase (ALT/SGPT) 67, Alkaline Phosphatase 58, Total Bilirubin 0.8, Total Protein 5.7 #L, Albumin 2.5 #L Vital Signs Date Time Temp Pulse Resp B/P (MAP) Pulse Ox O2 Delivery O2 Flow Rate FiO2 01/06/19 09:33 88 148/78 01/06/19 08:00 97.3 20 94 01/04/19 20:47 Room Air I&O- Last 24 Hours up to 6 AM 01/06/19 06:00 Intake Total 3278 ml Output Total 1000 ml Balance 2278 ml JUDITH ASHLEY MD Jan 06, 2019 10:16
[2019-01-06] MEDS ORDERED: ISOVUE-370 76% 100ML VIAL (Q9967) As Ordered ONE (10:38)
[2019-01-06 12:00] VITALS: BP 155/80
[2019-01-06] MEDS: LETROZOLE 2.5 MG TAB PO SCH (14:37)
[2019-01-06] MEDS ORDERED: LevoFLOXacin IV 750 MG in IV 1 EA IV SCH (15:00)
--- NOTE | 2019-01-06 15:07 | REP ---
CT chest with contrast: History: Fever of unknown origin. Comparison chest x-ray is from January 04, 2019. CT contrast dose: 100 mL of intravenous Isovue 370. CT findings: There are multifocal areas of alveolar infiltrate in the lower lobes bilaterally and in the upper lobes bilaterally. These are most pronounced in the right upper lobe and left lower lobe as well as left upper lobe. There are scattered normal-sized mediastinal lymph nodes. There is mild right hilar lymphadenopathy. These nodes may be reactive. No extrathoracic adenopathy is seen. No pleural or pericardial effusion is noted. Bone window settings show no bony destructive lesion. No filling defect is seen in the pulmonary arterial tree. Thoracic aorta shows no evidence of aneurysm or dissection. Impression: Bilateral alveolar infiltrates in the upper and lower lungs consistent with pneumonia. Electronically Signed by Michael Shen MD 01/06/2019 04:30 P
--- NOTE | 2019-01-06 15:09 | REP ---
CT abdomen and pelvis with IV and oral contrast: History: Fever of unknown origin. CT contrast dose: 100 mL of intravenous Isovue 370. Comparison KUB study is from January 04, 2019. Findings: Digital preliminary [employer] consultant radiograph shows infiltrates in the lungs bilaterally and a normal bowel gas pattern. The gaseous distension of the small bowel seen on January 04, 2019 is no longer apparent. On axial CT images, there is fatty infiltration of the liver. The liver has a somewhat Raina's lobe configuration. The liver is felt to be enlarged. Midclavicular line vertical dimension of the liver is 22.6 cm. Gallbladder is unremarkable. No pancreatic abnormality is seen. Kidneys enhance symmetrically and are morphologically intact. No adrenal lesion is seen. The spleen is unremarkable. Small and large intestinal bowel loops are normal in the upper abdomen. Pelvic CT images show evidence of a prosthetic device at the bladder base for continence assistance. Urinary bladder is largely empty but appears intact. Seminal vesicles and prostate are unremarkable. Impression: Hepatomegaly with fatty infiltration of the liver. Base continence implant noted in the pelvis. No acute intra-abdominal abnormality. Electronically Signed by Michael Shen MD 01/06/2019 04:31 P
[2019-01-06 16:00] VITALS: BP 140/76
[2019-01-06 17:00] VITALS: BP 142/71
[2019-01-06] MEDS ORDERED: VANCOMYCIN HCL 1,000 MG, VIAL MATE ADAPTER 1 EACH in D5W 250 ML IV ONE ×3 (19:00→21:00)
[2019-01-06 22:00] VITALS: BP 140/73
--- NOTE | 2019-01-06 22:26 | PHACANCOPD ---
PHARMACY VANCOMYCIN DOSING Pt Demographics Demographics Patient Age:28 , Weight:108.300 , Gender: male Adjusted Body Weight Events Past 24 Hours Events Past 24 Hours: NO: Dialysis, Diuretic Therapy, Change in CrCl, Fever, Elevation in WBC, Pending Diagnostics, Pending Procedures, Other Vancomycin Vancomycin Target Ranges: 10-20 mcg/ml Vancomycin Load Y/N: Yes Load Dose Date Time Vancomycin Load Dose: 2GM Date: 01/06/19 Time: 20:30 Vancomycin Dose Date: 01/07/19. Current Vancomycin Dose: [1GM IV Q12H (05:00)] Intermittent Dosing?: No Labs Labs Laboratory Tests 01/06/19 07:13 Red Blood Count 3.70 L, Mean Corpuscular Volume 86.8, Mean Corpuscular Hemoglobin 28.6, Mean Corpuscular Hemoglobin Concent 33.0, Red Cell Distribution Width 13.6, Calcium Level 8.2 L, Aspartate Amino Transf (AST/SGOT) 41 H, Alanine Aminotransferase (ALT/SGPT) 67, Alkaline Phosphatase 58, Total Bilirubin 0.8, Total Protein 5.7 #L, Albumin 2.5 #L Micro Microbiology 01/04/19 Blood Culture - Preliminary, Resulted No Growth after 48 hours. All Specime... 01/04/19 Respiratory Virus Panel (PCR) ([facility]) - Final, Complete 01/04/19 Blood Culture - Preliminary, Resulted No Growth after 48 hours. All Specime... Creatinine Clearance Date:01/06/19. Creatinine Clearance: [>100ml/min]. Assessment and Plan Maintaining Current Dose?: Yes Reason for dose change: No Dose Change Pharmacist Note Pharmacist Note Date: 01/06/19. PharmD note: VANCO 2GM LOAD DOSE AT 20:30 FOLLOWED BY 1GM IV Q12H STARTING AT 5AM 01/07/19. WE WILL FOLLOW WITH A VANCO TROUGH WHEN HE IS AT [facility] Jan 06, 2019 22:26
[2019-01-06] MEDS ORDERED: ONDANSETRON 4MG/2ML VIAL (J2405) IV ONE (23:30)
[2019-01-07] MEDS: ACETAMINOPHEN 650MG ER TAB (TYLENOL ARTHRITIS) PO PRN (00:02)
[2019-01-07] MEDS ORDERED: VANCOMYCIN HCL 1,000 MG, VIAL MATE ADAPTER 1 EACH in D5W 250 ML IV SCH (05:00)
[2019-01-07 05:58] LABS: BASO % 0.2 % (0.0-1.0); EOS % 0.1 % (0.0-3.0); HEMATOCRIT 32.8 % (42.0-52.0); HEMOGLOBIN 10.7 g/dl (13.5-17.5); LYMPH # 1.2 10^3/uL (1.5-5.0); LYMPH % 12.3 % (24.0-44.0); MEAN CORPUSCULAR HEMOGLOBIN 28.3 pg (27.0-33.0); MEAN CORPUSCULAR HGB CONC 32.6 g/dl (32.0-36.5); MEAN CORPUSCULAR VOLUME 86.8 fl (80.0-96.0); MONO # 0.3 10^3/uL (0.0-0.8); NEUTROPHILS # 8.2 10^3/uL (1.5-8.5); NEUTROPHILS % 83.8 % (36.0-66.0); PLATELET COUNT, AUTOMATED 361 10^3/uL (150-450); RED BLOOD COUNT 3.78 10^6/uL (4.30-6.10); WHITE BLOOD COUNT 9.7 10^3/uL (4.0-10.0)
[2019-01-07 06:00] VITALS: BP 98/61
[2019-01-07 06:43] LABS: BLOOD UREA NITROGEN 5 MG/DL (7-18); CALCIUM LEVEL 8.5 MG/DL (8.5-10.1); CARBON DIOXIDE LEVEL 27 MEQ/L (21-32); CHLORIDE LEVEL 102 MEQ/L (98-107); CREATININE FOR GFR 0.44 MG/DL (0.70-1.30); GLOMERULAR FILTRATION RATE > 60.0 (>60); GLUCOSE, FASTING 88 MG/DL (70-100); MAGNESIUM LEVEL 1.9 MG/DL (1.8-2.4); POTASSIUM SERUM 3.1 MEQ/L (3.5-5.1); SODIUM LEVEL 138 MEQ/L (136-145)
--- NOTE | 2019-01-07 07:10 | IPNPDOC ---
Text Note Date of Service The patient was seen on 01/07/19. NOTE Subjective: -Low grade temp overnight to 100.3 -No acute complaints -No chest pain, shortness of breath, cough, abdominal pain or diarrhea. Has had ongoing nausea. Objective: Vitals (See below) General: Lying in bed, no acute distress, comfortable, AAOx3 HEENT: NC, AT CVS: +S1S2 Lungs: CTAB, no noted crackles or wheezing Abdomen: Abdomen has normoactive bowel sounds, is soft, obese and without tenderness Extremities: WWP, no LE edema, 2+ DP pulses labs: reviewed Imaging: reviewed. Had CT chest with diffuse patchy infiltrates c/f PNA and CT A/P without acute abdominal pathology. Assessment and plan: 28 year old man with a history of paraplegia 2/2 Transverse Myelitis, Neurogenic bladder (Requiring self-catheterizations, s/p Placement of artificial urethral sphincter) and hypertension who presented to the ER with complaints of N/V, fevers and abdominal pain while on ciprofloxacin for a suspected UTI, currently on levaquin for suspected PNA with ongoing persistent low grade temps. Fever of unclear etiology: UA without evidence of ongoing infection, CT with possible PNA. possibly 2/2 pneumonia?,possibly 2/2 viral illness - Patient has had a history of recurrent UTIs; has visited urgent care and was prescribed ciprofloxacin, despite this continued to experience fevers - ROS remains negative at this time - Improving leukocytosis - Blood cultures negative to date, respiratory viral panel was negative - Procalcitonin was 0.12 - chest and A/P CTs showing possible pneumonia without other acute abnormalities - s/p 2d of vanc, Zosyn, c/w vanc, levaquin - MRSA PCR - Consulted infectious disease, follow up recs s/p Hypokalemia - possibly 2/2 emesis -monitor lytes and replete PRN Paraplegia 2/2 Transverse Myelitis - c/w Frequent position changes Neurogenic bladder - s/p Placement of artificial urethral sphincter - Patient continues with self-catheterizations HTN - BP moderately controlled - c/w Lisinopril and Amlodipine Mood disorder - c/w Duloxetine Obesity - BMI 34.7 - Complicating medical care DVT prophylaxis - c/w Lovenox VS,Fishbone, I+O VS, Fishbone, I+O Laboratory Tests 01/06/19 07:13 Red Blood Count 3.70 L, Mean Corpuscular Volume 86.8, Mean Corpuscular Hemoglobin 28.6, Mean Corpuscular Hemoglobin Concent 33.0, Red Cell Distribution Width 13.6, Calcium Level 8.2 L, Aspartate Amino Transf (AST/SGOT) 41 H, Alanine Aminotransferase (ALT/SGPT) 67, Alkaline Phosphatase 58, Total Bilirubin 0.8, Total Protein 5.7 #L, Albumin 2.5 #L 01/07/19 05:08 Red Blood Count 3.78 L, Mean Corpuscular Volume 86.8, Mean Corpuscular Hemoglobin 28.3, Mean Corpuscular Hemoglobin Concent 32.6, Red Cell Distribution Width 13.7, Calcium Level 8.5, Neutrophils (%) (Auto) 83.8 H, Lymphocytes (%) (Auto) 12.3 L, Monocytes (%) (Auto) 3.0, Eosinophils (%) (Auto) 0.1, Basophils (%) (Auto) 0.2, Neutrophils # (Auto) 8.2, Lymphocytes # (Auto) 1.2 L, Monocytes # (Auto) 0.3, Eosinophils # (Auto) 0.0, Basophils # (Auto) 0.0 Vital Signs Date Time Temp Pulse Resp B/P (MAP) Pulse Ox O2 Delivery O2 Flow Rate FiO2 01/07/19 04:00 98.8 01/06/19 22:00 89 18 140/73 (95) 90 01/04/19 20:47 Room Air I&O- Last 24 Hours up to 6 AM 01/07/19 06:00 Intake Total 2220 ml Output Total 0 ml Balance 2220 ml SABRINA PASCUAL MD Jan 07, 2019 07:10
[2019-01-07] MEDS ORDERED: POTASSIUM CHLORIDE 10 MEQ SR TABLET PO ONE (08:00)
[2019-01-07] MEDS: amLODIPine 5 MG TAB PO SCH (09:00)
[2019-01-07] MEDS: LISINOPRIL 10 MG TAB PO SCH (09:00)
[2019-01-07] MEDS: ENOXAPARIN 40 MG/0.4 ML SYRINGE (J1650) SC SCH (09:18)
[2019-01-07] MEDS: ASCORBIC ACID 500 MG TAB PO SCH ×2 (09:18→20:52)
[2019-01-07] MEDS: NS 1,000 ML IV SCH ×3 (09:18→20:53)
[2019-01-07] MEDS: DULoxetine 20 MG CAP (CYMBALTA) PO SCH ×2 (09:18→20:52)
[2019-01-07] MEDS: CYANOCOBALAMIN 500 MCG TAB PO SCH (09:18)
[2019-01-07] MEDS: LETROZOLE 2.5 MG TAB PO SCH (09:18)
[2019-01-07] MEDS: DOCUSATE SODIUM 100 MG CAP PO SCH ×2 (11:23→20:52)
[2019-01-07 14:00] VITALS: BP 133/85
[2019-01-07] MEDS: IBUPROFEN 600 MG TAB PO PRN (14:31)
[2019-01-07] MEDS: DOXYCYCLINE HYCLATE 100 MG TAB PO SCH ×2 (14:36→20:52)
[2019-01-07 18:00] VITALS: BP 146/85
[2019-01-07 22:00] VITALS: BP 138/82
[2019-01-08] MEDS: ACETAMINOPHEN 650MG ER TAB (TYLENOL ARTHRITIS) PO PRN ×2 (02:34→15:09)
[2019-01-08 06:00] VITALS: BP 139/82
[2019-01-08 06:51] LABS: BASO % 0.1 % (0.0-1.0); EOS % 0.3 % (0.0-3.0); HEMATOCRIT 31.9 % (42.0-52.0); HEMOGLOBIN 10.4 g/dl (13.5-17.5); LYMPH # 1.3 10^3/uL (1.5-5.0); LYMPH % 14.5 % (24.0-44.0); MEAN CORPUSCULAR HEMOGLOBIN 28.2 pg (27.0-33.0); MEAN CORPUSCULAR HGB CONC 32.6 g/dl (32.0-36.5); MEAN CORPUSCULAR VOLUME 86.4 fl (80.0-96.0); MONO # 0.3 10^3/uL (0.0-0.8); MONO % 3.6 % (0.0-5.0); NEUTROPHILS # 7.2 10^3/uL (1.5-8.5); NEUTROPHILS % 80.8 % (36.0-66.0); PLATELET COUNT, AUTOMATED 400 10^3/uL (150-450); RED BLOOD COUNT 3.69 10^6/uL (4.30-6.10); WHITE BLOOD COUNT 8.9 10^3/uL (4.0-10.0)
[2019-01-08] MEDS: NS 1,000 ML IV SCH ×3 (06:51→22:32)
[2019-01-08 07:21] LABS: BLOOD UREA NITROGEN 6 MG/DL (7-18); CALCIUM LEVEL 8.6 MG/DL (8.5-10.1); CARBON DIOXIDE LEVEL 31 MEQ/L (21-32); CHLORIDE LEVEL 105 MEQ/L (98-107); GLOMERULAR FILTRATION RATE > 60.0 (>60); GLUCOSE, FASTING 84 MG/DL (70-100); POTASSIUM SERUM 3.1 MEQ/L (3.5-5.1); SODIUM LEVEL 142 MEQ/L (136-145)
--- NOTE | 2019-01-08 08:23 | IPNPDOC ---
Text Note Date of Service The patient was seen on 01/08/19. NOTE Subjective: -Continues to have fevers, Tmax 101 in the last 24h, 100.9 this morning -No acute complaints -No chest pain, shortness of breath, cough, abdominal pain or diarrhea. Has had ongoing nausea Interim events: -consulted ID --> stopped vanc/levaquin, started doxy 100 PO BID, sent legionella, strep, mycoplasma and lyme studies Objective: Vitals (See below) General: Lying in bed, no acute distress, comfortable, AAOx3 HEENT: NC, AT CVS: +S1S2 Lungs: CTAB, no noted crackles or wheezing Abdomen: Abdomen has normoactive bowel sounds, is soft, obese and without tenderness Extremities: WWP, no LE edema, 2+ DP pulses Skin: No new noted rashes labs: reviewed Imaging: reviewed. Had CT chest with diffuse patchy infiltrates c/f PNA and CT A/P without acute abdominal pathology. 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 possibly 2/2 pneumonia? unlikely given negative procalcitonin and no symptoms, possibly 2/2 viral illness - Patient has had a history of recurrent UTIs; has visited urgent care and was prescribed ciprofloxacin, despite this continued to experience fevers - ROS remains negative at this time - Improved leukocytosis with antibiotics - Blood cultures negative to date, respiratory viral panel was negative - Procalcitonin was 0.12 - chest and A/P CTs showing possible pneumonia without other acute abnormalities - s/p 2d of vanc, Zosyn, then switched to vanc, levaquin for 1d, now switched to PO doxy - follow up MRSA PCR - Consulted infectious disease, follow up recs s/p Hypokalemia - possibly 2/2 emesis -monitor lytes and replete PRN Paraplegia 2/2 Transverse Myelitis - c/w Frequent position changes Neurogenic bladder - s/p Placement of artificial urethral sphincter - Patient continues with self-catheterizations HTN - BP moderately controlled - c/w Lisinopril and Amlodipine Mood disorder - c/w Duloxetine Obesity - BMI 32.4 - Complicating medical care DVT prophylaxis - c/w Lovenox VS,Fishbone, I+O VS, Fishbone, I+O Laboratory Tests 01/08/19 05:24 Red Blood Count 3.69 L, Mean Corpuscular Volume 86.4, Mean Corpuscular Hemoglobin 28.2, Mean Corpuscular Hemoglobin Concent 32.6, Red Cell Distribution Width 13.8, Neutrophils (%) (Auto) 80.8 H, Lymphocytes (%) (Auto) 14.5 L, Mo nocytes (%) (Auto) 3.6, Eosinophils (%) (Auto) 0.3, Basophils (%) (Auto) 0.1, Neutrophils # (Auto) 7.2, Lymphocytes # (Auto) 1.3 L, Monocytes # (Auto) 0.3, Eosinophils # (Auto) 0.0, Basophils # (Auto) 0.0, Calcium Level 8.6 Vital Signs Date Time Temp Pulse Resp B/P (MAP) Pulse Ox O2 Delivery O2 Flow Rate FiO2 01/08/19 06:00 100.9 97 19 139/82 (101) 91 01/04/19 20:47 Room Air I&O- Last 24 Hours up to 6 AM 01/08/19 06:00 Intake Total 5040 ml Output Total 1350 ml Balance 3690 ml SABRINA PASCUAL MD Jan 08, 2019 08:23
--- NOTE | 2019-01-08 08:23 | CR ---
DATE OF CONSULTATION: 01/07/2019 REASON FOR CONSULTATION: I was asked to consult by hospitalist for evaluation of fever. HISTORY OF PRESENT ILLNESS: Mr. Saenz is a 28-year-old paraplegic gentleman from transverse myelitis diagnosed in 2012. The patient has a history of recurrent urinary tract infections and more frequently over the past year. He was at a wedding in [place] when he developed chills, fever and generalized discomfort with shaking chills and he thought he was having a bladder infection so he went to a local urgent care at [place] and was prescribed ciprofloxacin. A urinalysis and culture were sent that was positive for E. coli sensitive to quinolones. The patient was continued on ciprofloxacin but had persistent pain over the next 48 hours in spite of being on antibiotics. He had a headache whenever he had the fever, but no neck stiffness. He had vomiting. No abdominal pain or diarrhea. The patient did not describe a cough when he initially came in but later developed this feeling of retching, which he describes as a dry cough followed by retching. He continues to be febrile in spite of being on broad-spectrum for the past 5 days. Initially he was on IV Zosyn for 24 hours and he was switched to Levaquin and IV vancomycin. PAST MEDICAL HISTORY: His past medical history significant for: Paraplegia at T11 with transverse myelitis idiopathic cause. It was worked up in [place] at [facility] in 2012. Neurogenic bladder requiring self-catheterization. He also has a bladder prosthesis that allows him for urinary continence. Hypertension. Carpal tunnel right wrist. Impotence for which he is taking hormone replacement. He and his would like to have kids. SOCIAL HISTORY: He is . He has been with his for over 10 years and for one. They do not have kids. He does not smoke. FAMILY HISTORY: Significant diabetes, hypertension, dyslipidemia, hypothyroidism, congestive heart failure. ALLERGIES: No known drug allergies. MEDICATIONS: - vancomycin 1 gram IV every 12 hours - levofloxacin 750 mg IV every 24 hours - letrozole 2.5 mg by mouth daily - vitamin C 500 mg by mouth twice a day - Cymbalta 20 mg twice a day - amlodipine 5 mg daily - cyanocobalamin 1000 mcg daily - lisinopril 10 mg daily - Lovenox 40 mg subcu daily - simethicone as needed - ibuprofen 600 mg every 12 hours - Colace 100 mg by mouth twice a day LABORATORY DATA: White count on admission was 14.4, today was 9.7, hemoglobin 10.7, hematocrit 32.8, platelets 361, 84% neutrophils, 12% lymphocytes, 3% monocytes. Sodium 138, potassium 3.1, chloride 102, bicarb 27, BUN 5, creatinine 0.44, glucose 88, calcium 8.5, magnesium was 0.9. Procalcitonin 0.12 on admission, down to 0.11. Influenza A and B was negative. Methicillin-resistant Staphylococcus aureus (MRSA) screen was negative. Urinalysis had only 6 white cells and 4 RBCs. Blood cultures were negative. Respiratory panel was negative on 01/04. PHYSICAL EXAMINATION: He is a healthy looking gentleman in mild discomfort from fever in no acute distress. Heart: Normal S1, S2 with no murmurs, rubs or gallops. Lungs are diminished at the bases but clear. No wheezes or rhonchi. Abdomen is soft, nontender. No hepatosplenomegaly. Extremities: There is a difference in temperature between the right and the left leg. The right one being warm and the left arm being relatively cold, but there is no evidence of cellulitis. No open lesions. No evidence of infection. Back: No CVA or lumbosacral tenderness. Neurologic Exam: Complete paralysis from T11 down, absent sensation from T11 down. Neck is supple. No JVD. No bruits. No adenopathy. Oropharynx is clear. IMPRESSION: This is a 28-year-old gentleman with one week of fever that was initially treated for presumptive urinary tract infection. He had urine culture that was positive for E. coli on Thursday which was susceptible to quinolones. In spite of being on appropriate antibiotics for the past week, he has had persistent fever. He has chest CT findings consistent with bilateral alveolar infiltrates in the upper and lower lobes consistent with pneumonia. There is mild hilar adenopathy. These nodes may be reactive in nature. CT of the abdomen and pelvis showed hepatomegaly with fatty liver, but no evidence of infection. Differential diagnosis includes viral infection such as Benny-Gallegos virus, cytomegalovirus (CMV). HIV very unlikely. The patient has been with his current for over 10 years. Tick-borne diseases, although the patient does not go outdoors, he does go fishing in his father's boat, but denies tick bites. Will obtain a Lyme serology. Fungal etiology with fluffy infiltrates on CT and hilar adenopathy would be in the differential although low. PLAN: Discontinue IV vancomycin. MRSA screen was negative. He does not have any cultures to suggest MRSA infection. Discontinue IV levofloxacin switch him to p.o. doxycycline that should cover any atypical pneumonia as well as Lyme disease. Will obtain Lyme serology, mycoplasma IgM and IgG, and urine legionnaire antigen and pneumococcal antigen. Case has been discussed with the patient, his and hospitalist service who has agreed with the plan.
[2019-01-08] MEDS: ENOXAPARIN 40 MG/0.4 ML SYRINGE (J1650) SC SCH (09:57)
[2019-01-08] MEDS: DOXYCYCLINE HYCLATE 100 MG TAB PO SCH ×2 (09:57→21:31)
[2019-01-08] MEDS: ASCORBIC ACID 500 MG TAB PO SCH ×2 (09:57→21:30)
[2019-01-08] MEDS: LISINOPRIL 10 MG TAB PO SCH (09:58)
[2019-01-08] MEDS: DOCUSATE SODIUM 100 MG CAP PO SCH ×2 (09:58→21:30)
[2019-01-08] MEDS: DULoxetine 20 MG CAP (CYMBALTA) PO SCH ×2 (09:58→21:30)
[2019-01-08] MEDS: LETROZOLE 2.5 MG TAB PO SCH (09:58)
[2019-01-08] MEDS: amLODIPine 5 MG TAB PO SCH (09:59)
[2019-01-08] MEDS: CYANOCOBALAMIN 500 MCG TAB PO SCH (09:59)
[2019-01-08 10:00] VITALS: BP 149/83
[2019-01-08 14:00] VITALS: BP 136/82
[2019-01-08 18:00] VITALS: BP 153/84
[2019-01-08] MEDS ORDERED: KCL 10MEQ/100ML SWI (KRUN) 10 MEQ in IV 1 EA IV ONE (21:15)
[2019-01-08] MEDS ORDERED: POTASSIUM CHLORIDE 10 MEQ SR TABLET PO ONE (21:15)
[2019-01-08 22:00] VITALS: BP 151/84
[2019-01-08] MEDS: SIMETHICONE 80 MG CHEW TAB PO PRN (22:31)
[2019-01-09] MEDS ORDERED: KCL 10MEQ/100ML SWI (KRUN) 10 MEQ in IV 1 EA IV SCH (01:00)
[2019-01-09 02:00] VITALS: BP 158/89
[2019-01-09 05:52] LABS: BASO % 0.2 % (0.0-1.0); EOS # 0.1 10^3/uL (0.0-0.5); EOS % 0.7 % (0.0-3.0); HEMATOCRIT 32.3 % (42.0-52.0); HEMOGLOBIN 10.8 g/dl (13.5-17.5); LYMPH # 1.8 10^3/uL (1.5-5.0); LYMPH % 19.8 % (24.0-44.0); MEAN CORPUSCULAR HEMOGLOBIN 28.6 pg (27.0-33.0); MEAN CORPUSCULAR HGB CONC 33.4 g/dl (32.0-36.5); MEAN CORPUSCULAR VOLUME 85.4 fl (80.0-96.0); MONO # 0.4 10^3/uL (0.0-0.8); MONO % 3.8 % (0.0-5.0); NEUTROPHILS # 6.8 10^3/uL (1.5-8.5); NEUTROPHILS % 74.6 % (36.0-66.0); PLATELET COUNT, AUTOMATED 457 10^3/uL (150-450); RED BLOOD COUNT 3.78 10^6/uL (4.30-6.10); WHITE BLOOD COUNT 9.1 10^3/uL (4.0-10.0)
[2019-01-09 06:00] VITALS: BP 161/89
[2019-01-09 06:13] LABS: BLOOD UREA NITROGEN 6 MG/DL (7-18); CALCIUM LEVEL 8.4 MG/DL (8.5-10.1); CARBON DIOXIDE LEVEL 29 MEQ/L (21-32); CHLORIDE LEVEL 103 MEQ/L (98-107); CREATININE FOR GFR 0.35 MG/DL (0.70-1.30); GLOMERULAR FILTRATION RATE > 60.0 (>60); GLUCOSE, FASTING 75 MG/DL (70-100); MAGNESIUM LEVEL 2.1 MG/DL (1.8-2.4); POTASSIUM SERUM 3.2 MEQ/L (3.5-5.1); SODIUM LEVEL 141 MEQ/L (136-145)
[2019-01-09] MEDS: DULoxetine 20 MG CAP (CYMBALTA) PO SCH (08:20)
[2019-01-09] MEDS: LETROZOLE 2.5 MG TAB PO SCH (08:20)
[2019-01-09 08:21] VITALS: BP 152/84
[2019-01-09] MEDS: DOCUSATE SODIUM 100 MG CAP PO SCH (08:21)
[2019-01-09] MEDS: LISINOPRIL 10 MG TAB PO SCH (08:21)
[2019-01-09] MEDS: DOXYCYCLINE HYCLATE 100 MG TAB PO SCH (08:22)
[2019-01-09] MEDS: amLODIPine 5 MG TAB PO SCH (08:22)
[2019-01-09] MEDS: CYANOCOBALAMIN 500 MCG TAB PO SCH (08:22)
[2019-01-09] MEDS: ASCORBIC ACID 500 MG TAB PO SCH (08:22)
[2019-01-09] MEDS: ENOXAPARIN 40 MG/0.4 ML SYRINGE (J1650) SC SCH (08:23)
[2019-01-09 10:00] VITALS: BP 142/82
[2019-01-09] MEDS: NS 1,000 ML IV SCH (11:25)
[2019-01-09] MEDS ORDERED: POTASSIUM CHLORIDE 10 MEQ SR TABLET PO ONE (11:30)
[2019-01-09] MEDS ORDERED: TYLE650T38 PO (12:49)
[2019-01-09] MEDS ORDERED: DOXY-350 PO (12:49)
--- NOTE | 2019-01-09 18:47 | DS.PDOC ---
Discharge Summary General Date of Admission Jan 04, 2019 at 19:29 Date of Discharge 01/09/19 Discharge Summary PROCEDURES PERFORMED DURING STAY: None. ADMITTING DIAGNOSES: Fever of unknown origin Hypokalemia Paraplegia 2/2 Transverse Myelitis Neurogenic bladder HTN Mood disorder Obesity DISCHARGE DIAGNOSES: 1. Fever of unknown origin Hypokalemia Paraplegia 2/2 Transverse Myelitis Neurogenic bladder HTN Mood disorder Obesity Bilateral pneumonia COMPLICATIONS/CHIEF COMPLAINT: Systemic Inflammatory Response Syndrome. HISTORY OF PRESENT ILLNESS: Mr. Saenz is a 28-year-old paraplegic gentleman from transverse myelitis diagnosed in 2012. The patient has a history of recurrent urinary tract infections and more frequently over the past year. He was at a wedding in [place] when he developed chills, fever and generalized discomfort with shaking chills and he thought he was having a bladder infection so he went to a local urgent care at [place] and was prescribed ciprofloxacin. A urinalysis and culture were sent that was positive for E. coli sensitive to quinolones. The patient was continued on ciprofloxacin but had persistent pain over the next 48 hours in spite of being on antibiotics. He had a headache whenever he had the fever, but no neck stiffness. He had vomiting. No abdominal pain or diarrhea. The patient did not describe a cough when he initially came in but later developed this feeling of retching, which he describes as a dry cough followed by retching. He continues to be febrile in spite of being on broad-spectrum for the past 5 days. Initially he was on IV Zosyn for 24 hours and he was switched to Levaquin and IV vancomycin. HOSPITAL COURSE: . In spite of being on appropriate antibiotics for the past week, he has had persistent fever. He has chest CT findings consistent with bilateral alveolar infiltrates in the upper and lower lobes consistent with pneumonia. There is mild hilar adenopathy. These nodes may be reactive in nature. CT of the abdomen and pelvis showed hepatomegaly with fatty liver, but no evidence of infection. Differential diagnosis includes viral infection such as Benny-Gallegos virus, cytomegalovirus (CMV). HIV very unlikely. The patient has been with his current for over 10 years. Tick-borne diseases, although the patient does not go outdoors, he does go fishing in his father's boat, but denies tick bites. Will obtain a Lyme serology. Fungal etiology with fluffy infiltrates on CT and hilar adenopathy would be in the differential although low. DISCHARGE MEDICATIONS: Please see below. ALLERGIES: Please see below. PHYSICAL EXAMINATION ON DISCHARGE: VITAL SIGNS: Please see below. He is a healthy looking gentleman in mild discomfort from fever in no acute distress. Heart: Normal S1, S2 with no murmurs, rubs or gallops. Lungs are diminished at the bases but clear. No wheezes or rhonchi. Abdomen is soft, nontender. No hepatosplenomegaly. Extremities: There is a difference in temperature between the right and the left leg. The right one being warm and the left arm being relatively cold, but there is no evidence of cellulitis. No open lesions. No evidence of infection. Back: No CVA or lumbosacral tenderness. Neurologic Exam: Complete paralysis from T11 down, absent sensation from T11 down. Neck is supple. No JVD. No bruits. No adenopathy. Oropharynx is clear. LABORATORY DATA: Please see below. IMAGING: CT abdomen and pelvis with IV and oral contrast: History: Fever of unknown origin. CT contrast dose: 100 mL of intravenous Isovue 370. Comparison KUB study is from January 04, 2019. Findings: Digital preliminary regional sales trainer radiograph shows infiltrates in the lungs bilaterally and a normal bowel gas pattern. The gaseous distension of the small bowel seen on January 04, 2019 is no longer apparent. On axial CT images, there is fatty infiltration of the liver. The liver has a somewhat Raina's lobe configuration. The liver is felt to be enlarged. Midclavicular line vertical dimension of the liver is 22.6 cm. Gallbladder is unremarkable. No pancreatic abnormality is seen. Kidneys enhance symmetrically and are morphologically intact. No adrenal lesion is seen. The spleen is unremarkable. Small and large intestinal bowel loops are normal in the upper abdomen. Pelvic CT images show evidence of a prosthetic device at the bladder base for continence assistance. Urinary bladder is largely empty but appears intact. Seminal vesicles and prostate are unremarkable. Impression: Hepatomegaly with fatty infiltration of the liver. Base continence implant noted in the pelvis. No acute intra-abdominal abnormality. CT chest with contrast: History: Fever of unknown origin. Comparison chest x-ray is from January 04, 2019. CT contrast dose: 100 mL of intravenous Isovue 370. CT findings: There are multifocal areas of alveolar infiltrate in the lower lobes bilaterally and in the upper lobes bilaterally. These are most pronounced in the right upper lobe and left lower lobe as well as left upper lobe. There are scattered normal-sized mediastinal lymph nodes. There is mild right hilar lymphadenopathy. These nodes may be reactive. No extrathoracic adenopathy is seen. No pleural or pericardial effusion is noted. Bone window settings show no bony destructive lesion. No filling defect is seen in the pulmonary arterial tree. Thoracic aorta shows no evidence of aneurysm or dissection. Impression: Bilateral alveolar infiltrates in the upper and lower lungs consistent with pneumonia. PROGNOSIS: Favorable ACTIVITY: As tolerated DIET: Regular DISCHARGE PLAN: Follow-up with Dr Tan DISPOSITION: 01 Home, Self-Care. DISCHARGE INSTRUCTIONS: 1. Take Tylenol when necessary for fever, continue doxycycline DISCHARGE CONDITION: Stable TIME SPENT ON DISCHARGE: Greater than 20 minutes. Vital Signs/I&Os Vital Signs Date Time Temp Pulse Resp B/P (MAP) Pulse Ox O2 Delivery O2 Flow Rate FiO2 01/09/19 10:00 98.7 74 20 142/82 (102) 98 01/04/19 20:47 Room Air I&O- Last 24 Hours up to 6 AM 01/09/19 06:00 Intake Total 3000 ml Output Total 2600 ml Balance 400 ml Laboratory Data Labs 24H Laboratory Tests 2 01/09/19 05:26: Immature Granulocyte % (Auto) 0.9, White Blood Count 9.1, Red Blood Count 3.78L, Hemoglobin 10.8L, Hematocrit 32.3L, Mean Corpuscular Volume 85.4, Mean Corpuscular Hemoglobin 28.6, Mean Corpuscular Hemoglobin Concent 33.4, Red Cell Distribution Width 14.0, Platelet Count 457H, Neutrophils (%) (Auto) 74.6H, Lymphocytes (%) (Auto) 19.8L, Monocytes (%) (Auto) 3.8, Eosinophils (%) (Auto) 0.7, Basophils (%) (Auto) 0.2, Neutrophils # (Auto) 6.8, Lymphocytes # (Auto) 1.8, Monocytes # (Auto) 0.4, Eosinophils # (Auto) 0.1, Basophils # (Auto) 0.0, Nucleated Red Blood Cells % (auto) 0.0, Anion Gap 9, Glomerular Filtration Rate > 60.0, Blood Urea Nitrogen 6L, Creatinine 0.35L, Sodium Level 141, Potassium Level 3.2L, Chloride Level 103, Carbon Dioxide Level 29, Calcium Level 8.4L, Magnesium Level 2.1, C-Reactive Protein, Quantitative 15.40H CBC/BMP Laboratory Tests 01/09/19 05:26 Red Blood Count 3.78 L, Mean Corpuscular Volume 85.4, Mean Corpuscular Hemoglobin 28.6, Mean Corpuscular Hemoglobin Concent 33.4, Red Cell Distribution Width 14.0, Neutrophils (%) (Auto) 74.6 H, Lymphocytes (%) (Auto) 19.8 L, Monocytes (%) (Auto) 3.8, Eosinophils (%) (Auto) 0.7, Basophils (%) (Auto) 0.2, Neutrophils # (Auto) 6.8, Lymphocytes # (Auto) 1.8, Monocytes # (Auto) 0.4, Eosinophils # (Auto) 0.1, Basophils # (Auto) 0.0, Calcium Level 8.4 L Microbiology Microbiology 01/04/19 Blood Culture - Final, Complete NO GROWTH AFTER 5 DAYS 01/04/19 Respiratory Virus Panel (PCR) ([facility]) - Final, Complete 01/04/19 Blood Culture - Final, Complete NO GROWTH AFTER 5 DAYS Discharge Medications Scheduled Amlodipine Besylate (Amlodipine Besylate) 5 Mg Tab, 5 MG PO DAILY, (Reported) Ascorbic Acid (Vitamin C) 500 Mg Tab, 500 MG PO BID, (Reported) TAKES WITH METHENAMINE C/E/FA/Zinc/Selenium/Lycopene (Conceptionxr Reproductive Tab) 1 Each Tablet, 1 TAB PO BID, (Reported) Clomiphene Citrate (Clomiphene Citrate) 50 Mg Tablet, 50 MG PO DAILY, (Reported) Cranberry (Cranberry) 400 Mg Capsule, 400 MG PO DAILY, (Reported) Cyanocobalamin (Vitamin B-12) (Vitamin B-12) 1,000 Mcg Tab, 1,000 MCG PO DAILY, (Reported) Doxycycline Monohydrate (Doxycycline) 100 Mg Capsule, 100 MG PO BID Duloxetine Hcl (Duloxetine HCl) 20 Mg Capsule.dr, 20 MG PO BID, (Reported) Letrozole (Letrozole) 2.5 Mg Tablet, 2.5 MG PO DAILY, (Reported) Lisinopril (Lisinopril) 10 Mg Tab, 10 MG PO DAILY, (Reported) Methenamine Hippurate (Hiprex) 1 Gm Tab, 1 GM PO BID, (Reported) TAKES WITH VIT C Scheduled PRN Acetaminophen (Tylenol 8 Hour) 650 Mg Tablet.er, 650 MG PO TIDP PRN for FEVER Ibuprofen (Ibuprofen) 400 Mg Tablet, 400 MG PO Q6H PRN for PAIN / FEVER, (Reported) Allergies Coded Allergies: No Known Allergies (Unverified , 06/30/17) ABBI GUSMAN DO Jan 09, 2019 18:47
[2019-01-10 14:41] LABS: BODY FLUID CULTURE Not Indicated (.); ORGANISM ID Not indicated. (.); SPECIMEN SOURCE Urine (.); URINE STREP PNEUMONIAE ANTIGEN Negative (Negative)
[2019-01-11 00:11] LABS: Lyme Disease IgG/IgM Antibodie <0.91 ISR (0.00-0.90); Lyme Disease IgM Ab Quantitati <0.80 index (0.00-0.79)
[2019-01-11 00:11] LABS: MYCOPLASMA PNEUMONIAE IgG <100 U/mL (0-99); MYCOPLASMA PNEUMONIAE IgM <770 U/mL (0-769)
== END 2019-01-09 14:36 | disposition home or self-care (01) | DRG 864 ==
LOC: M ED 16:03 → M ED INP 19:29 → M PCU 20:55 → M MSPAV 01-06 17:03
PROVIDERS: ADMIT Internal Medicine; ATTEND Internal Medicine
DX: R50.9 Fever, unspecified (principal); G37.3 Acute transverse myelitis in demyelinating disease of central nervous system; I10 Essential (primary) hypertension; E66.9 Obesity, unspecified; F39 Unspecified mood [affective] disorder; E87.6 Hypokalemia; G83.9 Paralytic syndrome, unspecified; N31.9 Neuromuscular dysfunction of bladder, unspecified; K76.0 Fatty (change of) liver, not elsewhere classified; Z79.899 Other long term (current) drug therapy; Z87.891 Personal history of nicotine dependence; R33.9 Retention of urine, unspecified; Z68.34 Body mass index [BMI] 34.0-34.9, adult

== ENCOUNTER → 2019-02-28 | Outpatient (REF) | payer OTHER, MEDICARE ==
[~2019-02-28] MED LIST changes: +CIPR-249 PO; +CLOM50TA9 PO; +CRAN400C PO; +DOXY-350 PO; +DULO1CAP4 PO; +IBUP-1114 PO; +LETR2.5T2 PO; +TYLE650T38 PO; +[UNRECOGNIZED DRUG - CODE] PO
[2019-02-28 11:44] LABS: HEMATOCRIT 42.8 % (42.0-52.0); HEMOGLOBIN 13.7 g/dl (13.5-17.5); MEAN CORPUSCULAR HEMOGLOBIN 27.7 pg (27.0-33.0); MEAN CORPUSCULAR VOLUME 86.6 fl (80.0-96.0); PLATELET COUNT, AUTOMATED 311 10^3/uL (150-450); RED BLOOD COUNT 4.94 10^6/uL (4.30-6.10); WHITE BLOOD COUNT 8.3 10^3/uL (4.0-10.0)
[2019-02-28 11:46] LABS: BLOOD UREA NITROGEN 13 MG/DL (7-18); CALCIUM LEVEL 9.3 MG/DL (8.5-10.1); CARBON DIOXIDE LEVEL 31 MEQ/L (21-32); CHLORIDE LEVEL 104 MEQ/L (98-107); CREATININE FOR GFR 0.46 MG/DL (0.70-1.30); GLOMERULAR FILTRATION RATE > 60.0 (>60); GLUCOSE, FASTING 115 MG/DL (70-100); SODIUM LEVEL 140 MEQ/L (136-145)
== END ==
LOC: M SFHCPLAZ 09:46
PROVIDERS: ATTEND Family Medicine
DX: E87.6 Hypokalemia (principal)

== ENCOUNTER → 2019-05-18 | Outpatient (CLI) | payer OTHER, MEDICARE ==
[2019-05-21 00:06] LABS: TESTOSTERONE FREE (DIRECT) 20.7 pg/mL (9.3-26.5)
== END ==
LOC: M WUC 16:42
PROVIDERS: ATTEND Urology
DX: N31.9 Neuromuscular dysfunction of bladder, unspecified (principal); N46.9 Male infertility, unspecified; N52.8 Other male erectile dysfunction

== ENCOUNTER → 2019-06-01 | Outpatient (CLI) | payer OTHER, MEDICARE | LOC: M LAB 16:32 | PROVIDERS: ATTEND Urology | DX: N46.9 Male infertility, unspecified (principal) ==

== ENCOUNTER → 2019-06-19 | Outpatient (REF) | payer OTHER | LOC: M LAB REF 14:41 | PROVIDERS: ATTEND Physician Assistant | DX: N39.0 Urinary tract infection, site not specified (principal) ==

== ENCOUNTER → 2019-08-14 | Outpatient (CLI) | payer OTHER, MEDICARE ==
[~2019-08-14] MED LIST changes: +VITA-243 PO; -VITA500T PO
[2019-08-14 12:51] LABS: BASO % 0.3 % (0.0-1.0); EOS % 0.2 % (0.0-3.0); HEMATOCRIT 41.5 % (42.0-52.0); HEMOGLOBIN 13.5 g/dl (13.5-17.5); LYMPH # 2.3 10^3/uL (1.5-5.0); LYMPH % 18.1 % (24.0-44.0); MEAN CORPUSCULAR HGB CONC 32.5 g/dl (32.0-36.5); MEAN CORPUSCULAR VOLUME 86.1 fl (80.0-96.0); MONO # 0.5 10^3/uL (0.0-0.8); MONO % 3.8 % (0.0-5.0); NEUTROPHILS # 9.9 10^3/uL (1.5-8.5); NEUTROPHILS % 77.3 % (36.0-66.0); PLATELET COUNT, AUTOMATED 352 10^3/uL (150-450); RED BLOOD COUNT 4.82 10^6/uL (4.30-6.10); WHITE BLOOD COUNT 12.8 10^3/uL (4.0-10.0)
[2019-08-14 12:58] LABS: ALT/SGPT 73 U/L (12-78); BILIRUBIN,TOTAL 0.6 MG/DL (0.2-1.0); BLOOD UREA NITROGEN 11 MG/DL (7-18); CALCIUM LEVEL 9.2 MG/DL (8.5-10.1); CARBON DIOXIDE LEVEL 28 MEQ/L (21-32); CHLORIDE LEVEL 101 MEQ/L (98-107); CREATININE FOR GFR 0.58 MG/DL (0.70-1.30); GLOMERULAR FILTRATION RATE > 60.0 (>60); GLUCOSE, FASTING 99 MG/DL (70-100); POTASSIUM SERUM 3.7 MEQ/L (3.5-5.1); SODIUM LEVEL 137 MEQ/L (136-145); TOTAL PROTEIN 7.8 GM/DL (6.4-8.2)
== END ==
LOC: M WUC 10:51
PROVIDERS: ATTEND Physician Assistant
DX: Z11.59 Encounter for screening for other viral diseases (principal); R50.9 Fever, unspecified
CPT/HCPCS: 36415; 80053; 85025; 87086; 87502; U0002

== ENCOUNTER → 2019-08-19 | Outpatient (CLI) | payer OTHER, MEDICARE ==
--- NOTE | 2019-08-19 13:24 | REPPI ---
REASON: Hypoxia. The latest prior for comparison is 01/04/2019. Examination is somewhat limited due to the patient's body habitus and less than optimal penetration of the radiographic beam. There is evidence of a diffuse increase in the interstitial markings throughout the lung cannon but improved compared to the prior exam. No patchy opacities or pleural effusions have developed. There is no change in the osseous structures. IMPRESSION: Increased interstitial markings and exam limitations as described above. Mild diffuse interstitial edema cannot be ruled out and needs to be correlated clinically. Electronically Signed by Glenn Santos DO 08/19/2019 01:31 P
== END ==
LOC: M PLAIMG 11:31
PROVIDERS: ATTEND Family Medicine
DX: R09.02 Hypoxemia (principal)

== ENCOUNTER → 2019-08-30 | Outpatient (CLI) | payer OTHER, MEDICARE ==
--- NOTE | 2019-08-31 05:19 | REP ---
Clinical: Thyroid nodule. Technique: Real time barnard scale and color evaluation using linear high frequency curved array transducers. Findings: The thyroid gland is relatively normal in contour, size, and parenchymal echotexture. The right lobe measures 5.8 x 2.1 x 2.0 cm and is without cyst or nodule. Left lobe measures 5.6 x 1.6 x 1.9 cm and includes a 9 x 7 x 6 mm hypoechoic nodule along the posterior mid/lower pole which may represent a partially exophytic thyroid nodule or underlying parathyroid gland. Impression: 1. Hypoechoic nodule along the posterior aspect of the left thyroid lobe as described above. Differential diagnosis includes partially exophytic indeterminate thyroid nodule versus parathyroid gland.
== END ==
LOC: M WHC 13:02
PROVIDERS: ATTEND Family Medicine
DX: E04.1 Nontoxic single thyroid nodule (principal)

== ENCOUNTER → 2019-08-30 | Outpatient (REF) | payer OTHER, MEDICARE ==
[2019-08-30 15:23] LABS: BASO % 0.4 % (0.0-1.0); EOS # 0.1 10^3/uL (0.0-0.5); HEMOGLOBIN 12.5 g/dl (13.5-17.5); LYMPH # 2.1 10^3/uL (1.5-5.0); LYMPH % 25.2 % (24.0-44.0); MEAN CORPUSCULAR HEMOGLOBIN 26.9 pg (27.0-33.0); MEAN CORPUSCULAR HGB CONC 31.3 g/dl (32.0-36.5); MONO # 0.6 10^3/uL (0.0-0.8); MONO % 7.2 % (0.0-5.0); NEUTROPHILS # 5.4 10^3/uL (1.5-8.5); NEUTROPHILS % 65.7 % (36.0-66.0); PLATELET COUNT, AUTOMATED 391 10^3/uL (150-450); RED BLOOD COUNT 4.65 10^6/uL (4.30-6.10); WHITE BLOOD COUNT 8.2 10^3/uL (4.0-10.0)
[2019-08-30 16:04] LABS: FREE T4 0.98 NG/DL (0.76-1.46); PERCENT SATURATION 17.6 % (19.7-50.0); THYROID STIMULATING HORMONE 0.805 uIU/ML (0.358-3.740)
[2019-08-30 20:24] LABS: HEMOGLOBIN A1c 5.4 %
== END ==
LOC: M PLALAB 13:44
PROVIDERS: ATTEND Family Medicine
DX: D72.829 Elevated white blood cell count, unspecified (principal); D64.9 Anemia, unspecified; R61 Generalized hyperhidrosis; Z13.1 Encounter for screening for diabetes mellitus

== ENCOUNTER → 2019-10-13 | Outpatient (REF) | payer OTHER, MEDICARE ==
[~2019-10-13] MED LIST changes: +AMLO1TAB24 PO; -AMLO5TAB6 PO
== END ==
LOC: M WUC 10:05
PROVIDERS: ATTEND Physician Assistant
DX: N39.0 Urinary tract infection, site not specified (principal)

== ENCOUNTER → 2019-12-11 | Outpatient (CLI) | payer OTHER, MEDICARE | LOC: M LABSMTC 10:47 | PROVIDERS: ATTEND Anesthesiology | DX: Z01.818 Encounter for other preprocedural examination (principal); Z11.59 Encounter for screening for other viral diseases | CPT/HCPCS: C9803; U0003 ==

== ENCOUNTER 2019-12-16 12:55 | Day surgery (SDC) | payer OTHER, MEDICARE ==
[~2019-12-16] VITALS: Ht 182.9 cm; Wt 111.1 kg
[~2019-12-16 12:55] MED LIST changes: +NS 1,000 ML IV SCH
[2019-12-16] MEDS ORDERED: propofoL 200 MG/20 ML VIAL As Ordered ONE ×2 (14:38→14:41)
[2019-12-16 15:25] VITALS: BP 146/70
--- NOTE | 2019-12-16 15:44 | ROOR ---
Patient Name: Kain Saenz Procedure Date: 12/16/2019 2:27 PM Date of : 1990 Age: 29 Room: [facility] Gender: Male Note Status: Finalized Procedure: Colonoscopy Indications: Hematochezia Providers: Juaquin Bueno MD Referring MD: Comfort Echeverria MD Requesting Provider: Medicines: Monitored Anesthesia Care Complications: No immediate complications. Procedure: Pre-Anesthesia Assessment: - Prior to the procedure, a History and Physical was performed, and patient medications and allergies were reviewed. The patient is competent. The risks and benefits of the procedure and the sedation options and risks were discussed with the patient. All questions were answered and informed consent was obtained. Patient identification and proposed procedure were verified by the physician, the nurse and the anesthesiologist in the procedure room. Mental Status Examination: alert and oriented. Airway Examination: normal oropharyngeal airway and neck mobility. Respiratory Examination: clear to auscultation. CV Examination: normal. Prophylactic Antibiotics: The patient does not require prophylactic antibiotics. Prior Anticoagulants: The patient has taken no previous anticoagulant or antiplatelet agents. ASA Grade Assessment: II - A patient with mild systemic disease. After reviewing the risks and benefits, the patient was deemed in satisfactory condition to undergo the procedure. The anesthesia plan was to use monitored anesthesia care (MAC). Immediately prior to administration of medications, the patient was re-assessed for adequacy to receive sedatives. The heart rate, respiratory rate, oxygen saturations, blood pressure, adequacy of pulmonary ventilation, and response to care were monitored throughout the procedure. The physical status of the patient was re-assessed after the procedure. The Colonoscope was introduced through the anus and advanced to the terminal ileum, with identification of the appendiceal orifice and IC valve. The colonoscopy was performed without difficulty. The patient tolerated the procedure well. The quality of the bowel preparation was good. The terminal ileum, ileocecal valve, appendiceal orifice, and rectum were photographed. Scope insertion time was 3 minutes. Scope withdrawal time was 9 minutes. The total duration of the procedure was 12 minutes. Findings: The perianal and digital rectal examinations were normal. The terminal ileum appeared normal. Two sessile polyps were found in the sigmoid colon and descending colon. The polyps were 3 to 4 mm in size. These polyps were removed with a cold snare. Resection and retrieval were complete. Verification of patient identification for the specimen was done by the physician and nurse using the patient's name, date and medical record number. Estimated blood loss was minimal. Non-bleeding external and internal hemorrhoids were found during retroflexion. The hemorrhoids were large. There is no endoscopic evidence of mass or stricture in the entire colon. Impression: - The examined portion of the ileum was normal. - Two 3 to 4 mm polyps in the sigmoid colon and in the descending colon, removed with a cold snare. Resected and retrieved. - Non-bleeding external and internal hemorrhoids. Recommendation: - Patient has a contact number available for emergencies. The signs and symptoms of potential delayed complications were discussed with the patient. Return to normal activities tomorrow. Written discharge instructions were provided to the patient. - High fiber diet. - Continue present medications. - Await pathology results. - Repeat colonoscopy at age 49 for screening purposes. - Preparation H ointment: Apply externally daily for 5 days. - Return to GI clinic if persistent symptoms or new symptoms. - Return to primary care physician. Juaquin Bueno MD Juaquin Bueno MD 12/16/2019 3:43:28 PM Electronically signed by Juaquin Bueno MD Number of Addenda: 0 Note Initiated On: 12/16/2019 2:27 PM Estimated Blood Loss: Estimated blood loss was minimal.
== END 2019-12-16 15:48 | disposition home or self-care (01) ==
LOC: M OPP 12:55
PROVIDERS: ATTEND Internal Medicine Gastroenterology
DX: D12.6 Benign neoplasm of colon, unspecified (principal); K64.8 Other hemorrhoids; K92.1 Melena; I10 Essential (primary) hypertension; G37.3 Acute transverse myelitis in demyelinating disease of central nervous system; G82.20 Paraplegia, unspecified; F17.210 Nicotine dependence, cigarettes, uncomplicated; Z79.899 Other long term (current) drug therapy; Z96.89 Presence of other specified functional implants

== ENCOUNTER → 2019-12-27 | Outpatient (REF) | payer OTHER, MEDICARE ==
[~2019-12-27] MED LIST changes: -NS 1,000 ML IV SCH
== END ==
LOC: M WUC 16:06
PROVIDERS: ATTEND Nurse Practitioner Family
DX: R30.0 Dysuria (principal)

== ENCOUNTER → 2020-02-27 | Outpatient (REF) | payer OTHER, MEDICARE ==
[2020-02-27 18:18] LABS: BLOOD UREA NITROGEN 9 MG/DL (7-18); CALCIUM LEVEL 9.6 MG/DL (8.5-10.1); CARBON DIOXIDE LEVEL 33 MEQ/L (21-32); CHLORIDE LEVEL 106 MEQ/L (98-107); CREATININE FOR GFR 0.52 MG/DL (0.70-1.30); GLOMERULAR FILTRATION RATE > 60.0 (>60); GLUCOSE, FASTING 100 MG/DL (70-100); POTASSIUM SERUM 3.9 MEQ/L (3.5-5.1); SODIUM LEVEL 142 MEQ/L (136-145)
== END ==
LOC: M SFHCPLAZ 14:58
PROVIDERS: ATTEND Family Medicine
DX: I10 Essential (primary) hypertension (principal)

== ENCOUNTER → 2020-03-04 | Outpatient (REF) | payer OTHER, MEDICARE | LOC: M LAB REF 09:45 | PROVIDERS: ATTEND Physician Assistant | DX: N39.0 Urinary tract infection, site not specified (principal) ==

== ENCOUNTER → 2020-05-19 | Outpatient (REF) | payer OTHER, MEDICARE ==
[~2020-05-19] MED LIST changes: +BACT800T5 PO; +LEVO750T13 PO; +LISI10TA22 PO; -LISI10TA4 PO
== END ==
LOC: M WUC 15:50
PROVIDERS: ATTEND Physician Assistant
DX: N39.0 Urinary tract infection, site not specified (principal)

== ENCOUNTER 2020-05-22 00:02 | Emergency (ER) | payer OTHER, MEDICARE ==
[~2020-05-22] VITALS: Ht 182.9 cm; Wt 107.3 kg
[~2020-05-22 00:02] MED LIST changes: -BACT800T5 PO; -LEVO750T13 PO
[2020-05-22] MEDS ORDERED: BACT800T5 PO (00:21)
[2020-05-22] MEDS ORDERED: NS 1,000 ML IV ONE (03:00)
[2020-05-22] MEDS ORDERED: KETOROLAC 30 MG/ML 1ML VIAL As Ordered ONE (03:10)
[2020-05-22] MEDS ORDERED: ONDANSETRON 4MG/2ML VIAL As Ordered ONE (03:10)
[2020-05-22] MEDS ORDERED: KETOROLAC 30 MG/ML 1ML VIAL IV ONE (03:15)
[2020-05-22] MEDS ORDERED: ONDANSETRON 4MG/2ML VIAL IV ONE (03:15)
[2020-05-22 03:27] LABS: BASO % 0.2 % (0.0-1.0); HEMATOCRIT 38.8 % (42.0-52.0); HEMOGLOBIN 12.5 g/dl (13.5-17.5); LYMPH # 1.3 10^3/uL (1.5-5.0); LYMPH % 7.1 % (24.0-44.0); MEAN CORPUSCULAR HEMOGLOBIN 26.4 pg (27.0-33.0); MEAN CORPUSCULAR HGB CONC 32.2 g/dl (32.0-36.5); MEAN CORPUSCULAR VOLUME 81.9 fl (80.0-96.0); MONO # 0.3 10^3/uL (0.0-0.8); MONO % 1.6 % (0.0-8.0); NEUTROPHILS # 16.5 10^3/uL (1.5-8.5); NEUTROPHILS % 90.7 % (36.0-66.0); PLATELET COUNT, AUTOMATED 462 10^3/uL (150-450); RED BLOOD COUNT 4.74 10^6/uL (4.30-6.10); WHITE BLOOD COUNT 18.1 10^3/uL (4.0-10.0)
[2020-05-22 03:57] LABS: ALBUMIN 3.5 GM/DL (3.2-5.2); BILIRUBIN,DIRECT 0.2 MG/DL (0.0-0.2); BILIRUBIN,TOTAL 0.5 MG/DL (0.2-1.0); TOTAL PROTEIN 7.7 GM/DL (6.4-8.2)
[2020-05-22 04:12] LABS: RSV AMPLIFICATION NEGATIVE (NEGATIVE)
--- NOTE | 2020-05-22 05:48 | REPVR ---
PROCEDURE INFORMATION: Exam: CT Abdomen And Pelvis Without Contrast Exam date and time: 05/22/2020 4:55 AM Age: 29 years old Clinical indication: Abdominal pain; Additional info: UTI, flank pain, R/O stone TECHNIQUE: Imaging protocol: Computed tomography of the abdomen and pelvis without contrast. Radiation optimization: All CT scans at this facility use at least one of these dose optimization techniques: automated exposure control; mA and/or kV adjustment per patient size (includes targeted exams where dose is matched to clinical indication); or iterative reconstruction. COMPARISON: CT ABD/PEL W/IV ORAL CONTRAS 01/06/2019 10:44 AM FINDINGS: Lungs: Nonspecific patchy bilateral ground-glass opacities. Liver: Hepatomegaly and steatosis. Gallbladder and bile ducts: Layering biliary sludge. Pancreas: Normal. No ductal dilation. Spleen: Normal. No splenomegaly. Adrenal glands: Normal. No mass. Kidneys and ureters: Normal. No hydronephrosis. Stomach and bowel: Unremarkable. No obstruction. No mucosal thickening. Appendix: No evidence of appendicitis. Intraperitoneal space: Unremarkable. No free air. No significant fluid collection. Vasculature: Mild atherosclerotic disease of the abdominal aorta. Lymph nodes: Unremarkable. No enlarged lymph nodes. Urinary bladder: Unremarkable as visualized. Reproductive: Partially visualized penile pump. Bones/joints: Mild facet arthropathy in the lower lumbar spine. Stenosis of the spinal canal at L3-L4 and L4-L5. Soft tissues: Generalized fatty atrophy of the bilateral lower extremity skeletal musculature. Fatty replacement of the bilateral ileopsoas muscles. Small fat containing umbilical hernia. IMPRESSION: Hepatomegaly and steatosis. No bowel obstruction. Normal appendix. No hydronephrosis or nephrolithiasis bilaterally. Nonspecific patchy bilateral ground-glass opacities. Electronically signed by: Dino Rudd On 05/22/2020 05:48:03 AM
[2020-05-22] MEDS ORDERED: LevoFLOXacin IV 750 MG in IV 1 EA IV ONE (06:15)
[2020-05-22] MEDS ORDERED: LEVO750T13 PO (07:13)
[2020-05-22 07:58] VITALS: BP 148/65
== END 2020-05-22 08:00 | disposition home or self-care (01) ==
LOC: M ED 00:02
DX: N39.0 Urinary tract infection, site not specified (principal); D72.829 Elevated white blood cell count, unspecified; I10 Essential (primary) hypertension; G82.20 Paraplegia, unspecified; Z79.899 Other long term (current) drug therapy
CPT/HCPCS: 51701; 74176; 80047; 80076; 81001; 83605; 83690; 85025; 87040; 87631; 93041; 96361; 96365; 96375; 99285; J1885; J1956; J2405

== ENCOUNTER → 2020-05-31 | Outpatient (REF) | payer OTHER, MEDICARE ==
[~2020-05-31] MED LIST changes: +BACT800T5 PO; +LEVO750T13 PO
[2020-05-31 13:30] LABS: BASO # 0.1 10^3/uL (0.0-0.2); BASO % 0.6 % (0.0-1.0); EOS # 0.1 10^3/uL (0.0-0.5); EOS % 0.7 % (0.0-3.0); HEMOGLOBIN 12.1 g/dl (13.5-17.5); LYMPH # 2.9 10^3/uL (1.5-5.0); LYMPH % 27.2 % (24.0-44.0); MEAN CORPUSCULAR HEMOGLOBIN 26.4 pg (27.0-33.0); MEAN CORPUSCULAR HGB CONC 30.3 g/dl (32.0-36.5); MEAN CORPUSCULAR VOLUME 87.3 fl (80.0-96.0); MONO # 0.8 10^3/uL (0.0-0.8); MONO % 7.6 % (2.0-8.0); NEUTROPHILS # 6.5 10^3/uL (1.5-8.5); NEUTROPHILS % 62.2 % (36.0-66.0); PLATELET COUNT, AUTOMATED 713 10^3/uL (150-450); RED BLOOD COUNT 4.58 10^6/uL (4.30-6.10); WHITE BLOOD COUNT 10.5 10^3/uL (4.0-10.0)
== END ==
LOC: M SFHCPLAZ 11:57
PROVIDERS: ATTEND Family Medicine
DX: D72.829 Elevated white blood cell count, unspecified (principal)

== ENCOUNTER → 2020-06-04 | Outpatient (REF) | payer OTHER, MEDICARE ==
[2020-06-04 14:05] LABS: BASO # 0.1 10^3/uL (0.0-0.2); BASO % 0.6 % (0.0-1.0); EOS % 0.5 % (0.0-3.0); HEMATOCRIT 40.7 % (42.0-52.0); HEMOGLOBIN 12.3 g/dl (13.5-17.5); LYMPH # 2.2 10^3/uL (1.5-5.0); LYMPH % 25.9 % (24.0-44.0); MEAN CORPUSCULAR HEMOGLOBIN 26.6 pg (27.0-33.0); MEAN CORPUSCULAR HGB CONC 30.2 g/dl (32.0-36.5); MEAN CORPUSCULAR VOLUME 88.1 fl (80.0-96.0); MONO # 0.7 10^3/uL (0.0-0.8); MONO % 8.2 % (2.0-8.0); NEUTROPHILS # 5.4 10^3/uL (1.5-8.5); PLATELET COUNT, AUTOMATED 582 10^3/uL (150-450); RED BLOOD COUNT 4.62 10^6/uL (4.30-6.10); WHITE BLOOD COUNT 8.5 10^3/uL (4.0-10.0)
== END ==
LOC: M PLALAB 09:27
PROVIDERS: ATTEND Family Medicine
DX: D47.3 Essential (hemorrhagic) thrombocythemia (principal)

== ENCOUNTER → 2020-06-20 | Outpatient (REF) | payer OTHER, MEDICARE ==
[2020-06-20 15:31] LABS: HEMATOCRIT 41.1 % (42.0-52.0); HEMOGLOBIN 12.8 g/dl (13.5-17.5); MEAN CORPUSCULAR HEMOGLOBIN 26.8 pg (27.0-33.0); MEAN CORPUSCULAR HGB CONC 31.1 g/dl (32.0-36.5); PLATELET COUNT, AUTOMATED 312 10^3/uL (150-450); RED BLOOD COUNT 4.78 10^6/uL (4.30-6.10); WHITE BLOOD COUNT 13.3 10^3/uL (4.0-10.0)
== END ==
LOC: M PLALAB 12:43
PROVIDERS: ATTEND Family Medicine
DX: D47.3 Essential (hemorrhagic) thrombocythemia (principal)

== ENCOUNTER → 2020-09-01 | Outpatient (REF) | payer OTHER, MEDICARE | LOC: M LAB REF 18:31 | PROVIDERS: ATTEND Physician Assistant | DX: R68.83 Chills (without fever) (principal) ==

== ENCOUNTER → 2020-09-26 | Outpatient (REF) | payer OTHER, MEDICARE ==
[2020-09-26 15:56] LABS: APPEARANCE, URINE CLEAR (CLEAR); BACTERIA, URINE AUTO 1+ (NEGATIVE); BILIRUBIN, URINE AUTO NEGATIVE (NEGATIVE); BLOOD, URINE BLOOD NEGATIVE (NEGATIVE); COLOR, URINE YELLOW (YELLOW); GLUCOSE, URINE (UA) AUTO NEGATIVE (NEGATIVE); KETONE, URINE AUTO NEGATIVE (NEGATIVE); LEUKOCYTE ESTERASE, URINE AUTO TRACE (NEGATIVE); MUCUS, URINE SMALL (NEGATIVE); NITRITE, URINE AUTO NEGATIVE (NEGATIVE); PROTEIN, URINE AUTO NEGATIVE (NEGATIVE); RBC, URINE AUTO 5 /HPF (0-3); SPECIFIC GRAVITY URINE AUTO 1.024 (1.002-1.035); SQUAMOUS EPITHELIAL CELL UR AU 0 /HPF (0-6); UROBILINOGEN, URINE AUTO 0.2 mg/dL (0.0-2.0); WBC, URINE AUTO 3 /HPF (0-3)
[2020-09-26 16:56] LABS: BLOOD UREA NITROGEN 11 MG/DL (7-18); CALCIUM LEVEL 9.4 MG/DL (8.5-10.1); CARBON DIOXIDE LEVEL 32 MEQ/L (21-32); CHLORIDE LEVEL 103 MEQ/L (98-107); CREATININE FOR GFR 0.42 MG/DL (0.70-1.30); GLOMERULAR FILTRATION RATE > 60.0 (>60); GLUCOSE, FASTING 115 MG/DL (70-100); SODIUM LEVEL 141 MEQ/L (136-145)
== END ==
LOC: M SFHCPLAZ 14:00
PROVIDERS: ATTEND Family Medicine
DX: I10 Essential (primary) hypertension (principal); R82.90 Unspecified abnormal findings in urine

== ENCOUNTER → 2020-10-26 | Outpatient (CLI) | payer OTHER, MEDICARE ==
[2020-10-26 15:38] LABS: APPEARANCE, URINE CLEAR (CLEAR); BACTERIA, URINE AUTO NEGATIVE (NEGATIVE); BILIRUBIN, URINE AUTO NEGATIVE (NEGATIVE); BLOOD, URINE BLOOD NEGATIVE (NEGATIVE); COLOR, URINE YELLOW (YELLOW); GLUCOSE, URINE (UA) AUTO NEGATIVE (NEGATIVE); KETONE, URINE AUTO NEGATIVE (NEGATIVE); LEUKOCYTE ESTERASE, URINE AUTO NEGATIVE (NEGATIVE); MUCUS, URINE LARGE (NEGATIVE); NITRITE, URINE AUTO NEGATIVE (NEGATIVE); PROTEIN, URINE AUTO 1+ mg/dL (NEGATIVE); RBC, URINE AUTO 0 /HPF (0-3); SPECIFIC GRAVITY URINE AUTO 1.031 (1.002-1.035); SQUAMOUS EPITHELIAL CELL UR AU 0 /HPF (0-6); UROBILINOGEN, URINE AUTO 0.2 mg/dL (0.0-2.0); WBC, URINE AUTO 2 /HPF (0-3)
[2020-10-26 16:07] LABS: BLOOD UREA NITROGEN 9 MG/DL (7-18); CALCIUM LEVEL 8.9 MG/DL (8.5-10.1); CARBON DIOXIDE LEVEL 31 MEQ/L (21-32); CHLORIDE LEVEL 104 MEQ/L (98-107); CREATININE FOR GFR 0.44 MG/DL (0.70-1.30); GLOMERULAR FILTRATION RATE > 60.0 (>60); GLUCOSE, FASTING 89 MG/DL (70-100); POTASSIUM SERUM 3.3 MEQ/L (3.5-5.1); SODIUM LEVEL 142 MEQ/L (136-145)
== END ==
LOC: M PLALAB 14:00
PROVIDERS: ATTEND Family Medicine
DX: I10 Essential (primary) hypertension (principal); R82.998 Other abnormal findings in urine

== ENCOUNTER → 2021-01-01 | Outpatient (REF) | payer OTHER, MEDICARE | LOC: M WUC 19:47 | PROVIDERS: ATTEND Physician Assistant | DX: R30.0 Dysuria (principal) ==

== ENCOUNTER → 2021-08-08 | Outpatient (CLI) | payer OTHER, MEDICARE ==
[~2021-08-08] MED LIST changes: +[UNRECOGNIZED DRUG - CODE] PO; -[UNRECOGNIZED DRUG - CODE] PO
== END ==
LOC: M WHC 10:42
PROVIDERS: ATTEND Internal Medicine Endocrinology, Diabetes & Metabolism
DX: E04.1 Nontoxic single thyroid nodule (principal)

== ENCOUNTER → 2021-09-03 | Outpatient (CLI) | payer OTHER, MEDICARE ==
[2021-09-03 13:50] LABS: HEMATOCRIT 34.3 % (42.0-52.0); HEMOGLOBIN 10.2 g/dl (13.5-17.5); MEAN CORPUSCULAR HEMOGLOBIN 23.3 pg (27.0-33.0); MEAN CORPUSCULAR HGB CONC 29.7 g/dl (32.0-36.5); MEAN CORPUSCULAR VOLUME 78.3 fl (80.0-96.0); PLATELET COUNT, AUTOMATED 462 10^3/uL (150-450); RED BLOOD COUNT 4.38 10^6/uL (4.30-6.10); WHITE BLOOD COUNT 6.8 10^3/uL (4.0-10.0)
[2021-09-03 14:40] LABS: BLOOD UREA NITROGEN 11 MG/DL (7-18); CARBON DIOXIDE LEVEL 29 MEQ/L (21-32); CHLORIDE LEVEL 107 MEQ/L (98-107); FERRITIN 5 NG/ML (26-388); GLOMERULAR FILTRATION RATE > 60.0 (>60); GLUCOSE, FASTING 101 MG/DL (70-100); IRON (FE) 24 UG/DL (65-175); POTASSIUM SERUM 4.1 MEQ/L (3.5-5.1); SODIUM LEVEL 139 MEQ/L (136-145); TOTAL IRON BINDING CAPACITY 482 UG/DL (250-450)
== END ==
LOC: M PLALAB 09:19
PROVIDERS: ATTEND Family Medicine
DX: I10 Essential (primary) hypertension (principal); K62.5 Hemorrhage of anus and rectum

== ENCOUNTER → 2021-10-23 | Outpatient (CLI) | payer OTHER, MEDICARE ==
[2021-10-23 14:58] LABS: APPEARANCE, URINE HAZY (CLEAR); BACTERIA, URINE AUTO 2+ (NEGATIVE); BILIRUBIN, URINE AUTO NEGATIVE (NEGATIVE); BLOOD, URINE BLOOD NEGATIVE (NEGATIVE); COLOR, URINE YELLOW (YELLOW); GLUCOSE, URINE (UA) AUTO NEGATIVE (NEGATIVE); KETONE, URINE AUTO TRACE mg/dL (NEGATIVE); LEUKOCYTE ESTERASE, URINE AUTO 3+ (NEGATIVE); MUCUS, URINE LARGE (NEGATIVE); NITRITE, URINE AUTO NEGATIVE (NEGATIVE); PROTEIN, URINE AUTO NEGATIVE (NEGATIVE); RBC, URINE AUTO 0 /HPF (0-3); SPECIFIC GRAVITY URINE AUTO 1.013 (1.002-1.035); SQUAMOUS EPITHELIAL CELL UR AU 0 /HPF (0-6); UROBILINOGEN, URINE AUTO 0.2 mg/dL (0.0-2.0); WBC, URINE AUTO 10 /HPF (0-3)
== END ==
LOC: M LAB 14:05
PROVIDERS: ATTEND Surgery
DX: R30.0 Dysuria (principal)

== ENCOUNTER 2021-11-22 14:27 | Emergency (ER) | payer OTHER, MEDICARE ==
[~2021-11-22] VITALS: Ht 180.3 cm; Wt 109.1 kg
[~2021-11-22 14:27] MED LIST changes: +LEVO1TAB40 PO; -LEVO750T13 PO
[2021-11-22 15:09] LABS: HEMATOCRIT 34.4 % (42.0-52.0); HEMOGLOBIN 10.9 g/dl (13.5-17.5); MEAN CORPUSCULAR HEMOGLOBIN 25.8 pg (27.0-33.0); MEAN CORPUSCULAR HGB CONC 31.7 g/dl (32.0-36.5); MEAN CORPUSCULAR VOLUME 81.3 fl (80.0-96.0); PLATELET COUNT, AUTOMATED 251 10^3/uL (150-450); RED BLOOD COUNT 4.23 10^6/uL (4.30-6.10); WHITE BLOOD COUNT 6.2 10^3/uL (4.0-10.0)
[2021-11-22 15:46] LABS: ALBUMIN 3.7 GM/DL (3.2-5.2); ALT/SGPT 24 U/L (12-78); BILIRUBIN,TOTAL 0.2 MG/DL (0.2-1.0); BLOOD UREA NITROGEN 10 MG/DL (7-18); CALCIUM LEVEL 9.1 MG/DL (8.5-10.1); CARBON DIOXIDE LEVEL 31 MEQ/L (21-32); CHLORIDE LEVEL 105 MEQ/L (98-107); CREATININE FOR GFR 0.48 MG/DL (0.70-1.30); GLOMERULAR FILTRATION RATE > 60.0 (>60); GLUCOSE, FASTING 96 MG/DL (70-100); POTASSIUM SERUM 3.2 MEQ/L (3.5-5.1); SODIUM LEVEL 139 MEQ/L (136-145); TOTAL PROTEIN 7.4 GM/DL (6.4-8.2)
[2021-11-22 18:21] LABS: RBC, URINE 0-1 /hpf (0-3)
[2021-11-22 18:22] LABS: BACTERIA, URINE LARGE AMOUNT; HYALINE CAST, URINE NONE SEEN /lpf (0-1); MUCUS, URINE SMALL AMOUNT (NEGATIVE); SQUAMOUS EPITHELIAL CELL URINE NONE SEEN /hpf (SMALL AMT); TRANSITIONAL EPI CELLS, URINE SMALL AMOUNT /hpf
[2021-11-22] MEDS ORDERED: ISOVUE-370 76% 100ML VIAL As Ordered ONE (19:01)
[2021-11-22 20:23] VITALS: BP 118/61
[2021-11-22] MEDS ORDERED: CIPR-249 PO ×2 (20:33→20:40)
[2021-11-22] MEDS ORDERED: CIPROFLOXACIN 500MG TABLET PO ONE (20:35)
== END 2021-11-22 20:51 | disposition home or self-care (01) ==
LOC: M ED 14:27
DX: N39.0 Urinary tract infection, site not specified (principal); U07.1 COVID-19; M54.9 Dorsalgia, unspecified; Z87.440 Personal history of urinary (tract) infections; I10 Essential (primary) hypertension; G82.22 Paraplegia, incomplete; G37.3 Acute transverse myelitis in demyelinating disease of central nervous system; Z79.899 Other long term (current) drug therapy
CPT/HCPCS: 74177; 80053; 81000; 81015; 83605; 85027; 87088; 87186; 87486; 87581; 87633; 87798; 99284; Q9967

== ENCOUNTER → 2022-05-01 | Outpatient (REF) | payer OTHER, MEDICARE ==
[~2022-05-01] MED LIST changes: -DOXY-350 PO; +DOXY-444 PO
== END ==
LOC: M LAB REF 18:47
PROVIDERS: ATTEND Physician Assistant
DX: R30.0 Dysuria (principal)

== ENCOUNTER → 2022-05-27 | Outpatient (CLI) | payer OTHER, MEDICARE ==
[2022-05-27 17:31] LABS: BASO # 0.1 10^3/uL (0.0-0.2); BASO % 0.7 % (0.0-1.0); EOS # 0.1 10^3/uL (0.0-0.5); EOS % 0.7 % (0.0-3.0); HEMATOCRIT 41.8 % (42.0-52.0); HEMOGLOBIN 13.1 g/dl (13.5-17.5); LYMPH # 2.8 10^3/uL (1.5-5.0); LYMPH % 30.1 % (24.0-44.0); MEAN CORPUSCULAR HGB CONC 31.3 g/dl (32.0-36.5); MEAN CORPUSCULAR VOLUME 86.2 fl (80.0-96.0); MONO # 0.8 10^3/uL (0.0-0.8); MONO % 8.9 % (2.0-8.0); NEUTROPHILS # 5.5 10^3/uL (1.5-8.5); NEUTROPHILS % 59.4 % (36.0-66.0); PLATELET COUNT, AUTOMATED 349 10^3/uL (150-450); RED BLOOD COUNT 4.85 10^6/uL (4.30-6.10); WHITE BLOOD COUNT 9.2 10^3/uL (4.0-10.0)
[2022-05-27 17:58] LABS: TOTAL IRON BINDING CAPACITY 413 UG/DL (250-425)
[2022-05-27 18:06] LABS: IRON (FE) 125 UG/DL (65-175); PERCENT SATURATION 30.3 % (19.7-50.0)
[2022-05-27 19:33] LABS: ALBUMIN 4.1 G/DL (3.2-5.2); ALKALINE PHOSPHATASE 49 U/L (46-116); ALT/SGPT 23 U/L (7.0-40); AST/SGOT 21 U/L (<34); BILIRUBIN,TOTAL 0.4 MG/DL (0.3-1.2); BLOOD UREA NITROGEN 14 MG/DL (9-23); CALCIUM LEVEL 9.2 MG/DL (8.5-10.1); CARBON DIOXIDE LEVEL 33 MMOL/L (20-31); CHLORIDE LEVEL 105 MMOL/L (98-107); CHOLESTEROL LEVEL 188 MG/DL (<200); CHOLESTEROL RISK RATIO 5.59 (<5); GLUCOSE, FASTING 93 MG/DL (60-100); HDL CHOLESTEROL 33.6 MG/DL (>40); NON-HDL-C 154 MG/DL; SODIUM LEVEL 144 MMOL/L (136-145); TOTAL PROTEIN 7.3 G/DL (5.7-8.2); TRIGLYCERIDES LEVEL 162 MG/DL (<150)
[2022-05-27 20:00] LABS: CREATININE FOR GFR 0.45 MG/DL (0.70-1.30); GLOMERULAR FILTRATION RATE > 60.0 (>60)
== END ==
LOC: M PLALAB 15:50
PROVIDERS: ATTEND Physician Assistant
DX: E61.1 Iron deficiency (principal); Z82.3 Family history of stroke; N31.9 Neuromuscular dysfunction of bladder, unspecified

== ENCOUNTER → 2022-06-13 | Outpatient (CLI) | payer OTHER, MEDICARE | LOC: M CARPUL 14:19 | PROVIDERS: ATTEND Physician Assistant | DX: I51.7 Cardiomegaly (principal) ==

== ENCOUNTER → 2022-06-20 | Outpatient (REF) | payer OTHER, MEDICARE | LOC: M LAB REF 16:13 | PROVIDERS: ATTEND Nurse Practitioner Family | DX: R82.90 Unspecified abnormal findings in urine (principal) ==

== ENCOUNTER → 2022-07-11 | Outpatient (CLI) | payer OTHER, MEDICARE ==
[2022-07-11 16:50] LABS: PROSTATIC SPECIFIC AG MONITOR 0.89 NG/ML (< 4.00)
== END ==
LOC: M WUC 13:01
PROVIDERS: ATTEND Urology
DX: N31.9 Neuromuscular dysfunction of bladder, unspecified (principal)

== ENCOUNTER → 2022-10-29 | Outpatient (REF) | payer OTHER, MEDICARE | LOC: M LAB REF 16:26 | PROVIDERS: ATTEND Nurse Practitioner Family | DX: R30.0 Dysuria (principal) ==

== ENCOUNTER → 2022-12-09 | Outpatient (REF) | payer OTHER, MEDICARE, MEDICAID | LOC: M LAB REF 16:11 | PROVIDERS: ATTEND Nurse Practitioner Family | DX: M54.50 Low back pain, unspecified (principal) ==

== ENCOUNTER → 2023-03-02 | Outpatient (REF) | payer OTHER, MEDICARE, MEDICAID | LOC: M LAB REF 11:44 | PROVIDERS: ATTEND Nurse Practitioner Family | DX: R30.0 Dysuria (principal) ==

== ENCOUNTER → 2023-03-02 | Outpatient (CLI) | payer OTHER, MEDICARE, MEDICAID ==
[2023-03-02 11:32] LABS: PROSTATIC SPECIFIC AG MONITOR 0.59 NG/ML (< 4.00)
== END ==
LOC: M LAB 10:17
PROVIDERS: ATTEND Urology
DX: N31.9 Neuromuscular dysfunction of bladder, unspecified (principal)

== ENCOUNTER → 2023-03-16 | Outpatient (REF) | payer OTHER, MEDICARE, MEDICAID | LOC: M LAB REF 11:15 | PROVIDERS: ATTEND Nurse Practitioner Family | DX: N39.0 Urinary tract infection, site not specified (principal) ==

== ENCOUNTER → 2023-05-21 | Outpatient (REF) | payer OTHER, MEDICARE, MEDICAID ==
[2023-05-21 18:39] LABS: BASO # 0.1 10^3/uL (0.0-0.2); BASO % 0.9 % (0.0-1.0); EOS # 0.1 10^3/uL (0.0-0.5); EOS % 1.2 % (0.0-3.0); LYMPH # 3.1 10^3/uL (1.5-5.0); LYMPH % 35.9 % (24.0-44.0); MEAN CORPUSCULAR HEMOGLOBIN 29.1 pg (27.0-33.0); MEAN CORPUSCULAR HGB CONC 33.3 g/dl (32.0-36.5); MEAN CORPUSCULAR VOLUME 87.3 fl (80.0-96.0); MONO # 0.7 10^3/uL (0.0-0.8); MONO % 7.7 % (2.0-8.0); NEUTROPHILS # 4.6 10^3/uL (1.5-8.5); NEUTROPHILS % 54.2 % (36.0-66.0); PLATELET COUNT, AUTOMATED 292 10^3/uL (150-450); RED BLOOD COUNT 4.81 10^6/uL (4.30-6.10); WHITE BLOOD COUNT 8.6 10^3/uL (4.0-10.0)
[2023-05-21 18:45] LABS: HEMOGLOBIN A1c 5.3 % (4.0-6.0)
[2023-05-21 19:05] LABS: FERRITIN 28.7 NG/ML (10.5-307.3)
[2023-05-21 19:06] LABS: ALKALINE PHOSPHATASE 51 U/L (46-116); ALT/SGPT 47 U/L (7.0-40); AST/SGOT 20 U/L (<34); BILIRUBIN,TOTAL 0.3 MG/DL (0.3-1.2); BLOOD UREA NITROGEN 11 MG/DL (9-23); CALCIUM LEVEL 8.8 MG/DL (8.5-10.1); CARBON DIOXIDE LEVEL 30 MMOL/L (20-31); CHLORIDE LEVEL 108 MMOL/L (98-107); CHOLESTEROL LEVEL 175 MG/DL (<200); CHOLESTEROL RISK RATIO 5.52 (<5); CREATININE FOR GFR 0.51 MG/DL (0.70-1.30); GLOMERULAR FILTRATION RATE > 60.0 (>60); GLUCOSE, FASTING 78 MG/DL (60-100); HDL CHOLESTEROL 31.7 MG/DL (>40); IRON (FE) 48 UG/DL (65-175); LDL CHOLESTEROL 110.1 MG/DL (<100); NON-HDL-C 143.3 MG/DL; PERCENT SATURATION 13.4 % (19.7-50.0); POTASSIUM SERUM 3.9 MMOL/L (3.5-5.1); SODIUM LEVEL 144 MMOL/L (136-145); THYROID STIMULATING HORMONE 0.756 uIU/ML (0.55-4.78); TOTAL 25(OH) VITAMIN D 20.8 NG/ML (20.0-100.0); TOTAL IRON BINDING CAPACITY 359 UG/DL (250-425); TRIGLYCERIDES LEVEL 166 MG/DL (<150)
[2023-05-21 19:07] LABS: VITAMIN B12 LEVEL 311 PG/ML (211-911)
[2023-05-21 19:08] LABS: FREE T4 0.99 NG/DL (0.89-1.76)
== END ==
LOC: M LABDRWAD 17:52
PROVIDERS: ATTEND Physician Assistant
DX: I10 Essential (primary) hypertension (principal); D50.8 Other iron deficiency anemias; E04.1 Nontoxic single thyroid nodule; E66.9 Obesity, unspecified

== ENCOUNTER → 2023-07-15 | Outpatient (REF) | payer OTHER, MEDICARE, MEDICAID | LOC: M LAB REF 16:33 | PROVIDERS: ATTEND Nurse Practitioner Family | DX: R30.0 Dysuria (principal) ==

== ENCOUNTER → 2023-09-21 | Outpatient (CLI) | payer OTHER, MEDICARE, MEDICAID ==
[~2023-09-21] MED LIST changes: -CRAN400C PO; +CRANBERRY400 MG PO; +DOXY-440 PO; -DOXY-444 PO
== END ==
LOC: M RAD 13:26
PROVIDERS: ATTEND Nurse Practitioner Family
DX: E04.1 Nontoxic single thyroid nodule (principal)

== ENCOUNTER → 2023-10-23 | Outpatient (CLI) | payer OTHER, MEDICARE, MEDICAID | LOC: M RAD 14:03 | PROVIDERS: ATTEND Nurse Practitioner Family | DX: N12 Tubulo-interstitial nephritis, not specified as acute or chronic (principal); K76.0 Fatty (change of) liver, not elsewhere classified ==

== ENCOUNTER → 2023-11-24 | Outpatient (CLI) | payer OTHER, MEDICARE, MEDICAID ==
[2023-11-24 11:42] LABS: APPEARANCE, URINE HAZY (CLEAR); BACTERIA, URINE AUTO 2+ (NEGATIVE); BILIRUBIN, URINE AUTO NEGATIVE (NEGATIVE); BLOOD, URINE BLOOD NEGATIVE (NEGATIVE); COLOR, URINE YELLOW (YELLOW); GLUCOSE, URINE (UA) AUTO NEGATIVE (NEGATIVE); KETONE, URINE AUTO NEGATIVE (NEGATIVE); LEUKOCYTE ESTERASE, URINE AUTO NEGATIVE (NEGATIVE); MUCUS, URINE SMALL (NEGATIVE); NITRITE, URINE AUTO POSITIVE (NEGATIVE); PROTEIN, URINE AUTO NEGATIVE (NEGATIVE); RBC, URINE AUTO 0 /HPF (0-3); SPECIFIC GRAVITY URINE AUTO 1.018 (1.002-1.035); SQUAMOUS EPITHELIAL CELL UR AU 0 /HPF (0-6); UROBILINOGEN, URINE AUTO 0.2 mg/dL (0.0-2.0); WBC, URINE AUTO 7 /HPF (0-3)
== END ==
LOC: M LAB 10:49
PROVIDERS: ATTEND Surgery
DX: R39.9 Unspecified symptoms and signs involving the genitourinary system (principal)

== ENCOUNTER → 2023-12-14 | Outpatient (CLI) | payer OTHER, MEDICARE, MEDICAID ==
[2023-12-14 16:39] LABS: APPEARANCE, URINE HAZY (CLEAR); BACTERIA, URINE AUTO 1+ (NEGATIVE); BILIRUBIN, URINE AUTO NEGATIVE (NEGATIVE); BLOOD, URINE BLOOD NEGATIVE (NEGATIVE); COLOR, URINE YELLOW (YELLOW); GLUCOSE, URINE (UA) AUTO NEGATIVE (NEGATIVE); KETONE, URINE AUTO NEGATIVE (NEGATIVE); LEUKOCYTE ESTERASE, URINE AUTO 2+ (NEGATIVE); MUCUS, URINE SMALL (NEGATIVE); NITRITE, URINE AUTO NEGATIVE (NEGATIVE); PROTEIN, URINE AUTO NEGATIVE (NEGATIVE); RBC, URINE AUTO 2 /HPF (0-3); SQUAMOUS EPITHELIAL CELL UR AU 0 /HPF (0-6); UROBILINOGEN, URINE AUTO 0.2 mg/dL (0.0-2.0); WBC, URINE AUTO 62 /HPF (0-3)
== END ==
LOC: M LAB 16:11
PROVIDERS: ATTEND Surgery
DX: R82.90 Unspecified abnormal findings in urine (principal)

== ENCOUNTER → 2024-01-19 | Outpatient (REF) | payer OTHER | LOC: M SFHCPLAZ 17:03 | PROVIDERS: ATTEND Physician Assistant | DX: R39.9 Unspecified symptoms and signs involving the genitourinary system (principal) ==

== ENCOUNTER → 2024-07-04 | Outpatient (REF) | payer OTHER, MEDICARE, MEDICAID | LOC: M SFHCPLAZ 12:37 | PROVIDERS: ATTEND Nurse Practitioner Family | DX: N11.9 Chronic tubulo-interstitial nephritis, unspecified (principal) ==

== ENCOUNTER → 2024-07-20 | Outpatient (CLI) | payer OTHER, MEDICARE | LOC: M RAD 14:16 | PROVIDERS: ATTEND Nurse Practitioner Family | DX: E04.1 Nontoxic single thyroid nodule (principal) ==

== ENCOUNTER → 2025-02-13 | Outpatient (REF) | payer MEDICARE, OTHER ==
[~2025-02-13] MED LIST changes: +CLOM50TA31 PO; -CLOM50TA9 PO
== END ==
LOC: M LAB REF 16:51
PROVIDERS: ATTEND Student in an Organized Health Care Education/Training Program
DX: R30.0 Dysuria (principal); B96.1 Klebsiella pneumoniae [K. pneumoniae] as the cause of diseases classified elsewhere

== ENCOUNTER → 2025-03-22 | Outpatient (REF) | payer OTHER ==
[2025-03-22 15:04] LABS: APPEARANCE, URINE HAZY (CLEAR); BACTERIA, URINE AUTO 2+ (NEGATIVE); BILIRUBIN, URINE AUTO NEGATIVE (NEGATIVE); BLOOD, URINE BLOOD NEGATIVE (NEGATIVE); GLUCOSE, URINE (UA) AUTO NEGATIVE (NEGATIVE); KETONE, URINE AUTO NEGATIVE (NEGATIVE); LEUKOCYTE ESTERASE, URINE AUTO TRACE (NEGATIVE); MUCUS, URINE MODERATE (NEGATIVE); NITRITE, URINE AUTO NEGATIVE (NEGATIVE); PROTEIN, URINE AUTO NEGATIVE (NEGATIVE); RBC, URINE AUTO 1 /HPF (0-3); SPECIFIC GRAVITY URINE AUTO 1.024 (1.002-1.035); SQUAMOUS EPITHELIAL CELL UR AU 0 /HPF (0-6); UROBILINOGEN, URINE AUTO 0.2 mg/dL (0.0-2.0); WBC, URINE AUTO 6 /HPF (0-3)
== END ==
LOC: EEVIPCON 13:45 → M LAB REF 13:45
PROVIDERS: ATTEND Surgery
DX: R39.9 Unspecified symptoms and signs involving the genitourinary system (principal)